=== PATIENT | female | born 1930 | race Caucasian/White ===

== ENCOUNTER → 2016-10-17 | Outpatient (CLI) | payer OTHER ==
[2016-07-05 14:15] VITALS: BP 143/71
[2016-10-17 10:29] LABS: BASOPHILS # (AUTO) 0.2 X10^3/uL (0.0-0.1); BASOPHILS % (AUTO) 1.9 % (0.2-1.0); EOSINOPHILS # (AUTO) 0.2 x10^3/uL (0.0-0.2); EOSINOPHILS % (AUTO) 1.8 % (0.9-2.9); HEMATOCRIT 36.2 % (36.0-47.0); HEMOGLOBIN 11.7 g/dL (12.0-16.0); LYMPHOCYTES # (AUTO) 3.7 X10^3/uL (1.3-2.9); LYMPHOCYTES % (AUTO) 39.3 % (21.0-51.0); MEAN CORPUSCULAR HEMOGLOBIN 29.5 pg (27.0-34.0); MEAN CORPUSCULAR HGB CONC 32.4 g/dL (33.0-35.0); MEAN CORPUSCULAR VOLUME 90.8 fL (80.0-100.0); MEAN PLATELET VOLUME 8.6 fL (7.4-11.0); MONOCYTES # (AUTO) 0.8 x10^3/uL (0.3-0.8); MONOCYTES % (AUTO) 8.6 % (0.0-13.0); NEUTROPHILS # (AUTO) 4.5 x10^3/uL (2.2-4.8); NEUTROPHILS % (AUTO) 48.4 % (42.0-75.0); PLATELET COUNT 357 X10^3/uL (150.0-450.0); RED BLOOD COUNT 3.99 X10^6/uL (3.5-5.4); RED CELL DISTRIBUTION WIDTH 15.4 % (11.6-16.5); WHITE BLOOD COUNT 9.3 X10^3/uL (3.6-10.0)
[2016-10-17 10:51] LABS: BAND NEUTROPHILS % 3 % (0-10); BASOPHILS % (MANUAL) 1 % (0-1)
[2016-10-17 10:52] LABS: PLATELET MORPHOLOGY COMMENT NORMAL (NORMAL)
== END ==
LOC: LAB 10:04
PROVIDERS: ATTEND Internal Medicine Gastroenterology
DX: D50.8 Other iron deficiency anemias (principal)
CPT/HCPCS: 36415; 85025

== ENCOUNTER → 2016-11-14 | Outpatient (CLI) | payer OTHER ==
[2016-07-05 14:15] VITALS: BP 143/71
[2016-11-14 16:18] LABS: BASOPHILS # (AUTO) 0.1 X10^3/uL (0.0-0.1); EOSINOPHILS # (AUTO) 0.2 x10^3/uL (0.0-0.2); EOSINOPHILS % (AUTO) 1.9 % (0.9-2.9); HEMOGLOBIN 12.1 g/dL (12.0-16.0); LYMPHOCYTES # (AUTO) 3.3 X10^3/uL (1.3-2.9); LYMPHOCYTES % (AUTO) 34.7 % (21.0-51.0); MEAN CORPUSCULAR HEMOGLOBIN 30.6 pg (27.0-34.0); MEAN CORPUSCULAR HGB CONC 33.6 g/dL (33.0-35.0); MEAN CORPUSCULAR VOLUME 91.1 fL (80.0-100.0); MEAN PLATELET VOLUME 8.7 fL (7.4-11.0); MONOCYTES # (AUTO) 0.9 x10^3/uL (0.3-0.8); NEUTROPHILS # (AUTO) 5.1 x10^3/uL (2.2-4.8); NEUTROPHILS % (AUTO) 53.4 % (42.0-75.0); PLATELET COUNT 395 X10^3/uL (150.0-450.0); RED BLOOD COUNT 3.95 X10^6/uL (3.5-5.4); WHITE BLOOD COUNT 9.5 X10^3/uL (3.6-10.0)
[2016-11-14 16:25] LABS: HEMOGLOBIN A1C 6.2 % (4.5-6.2)
[2016-11-14 16:40] LABS: ALANINE AMINOTRANSFERASE 18 Units/L (12-78); ALBUMIN 3.9 g/dL (3.4-5.0); ALKALINE PHOSPHATASE 64 Units/L (46-116); ASPARTATE AMINO TRANSFERASE 15 Units/L (15-37); BLOOD UREA NITROGEN 48 mg/dL (7-18); CALCIUM 10.8 mg/dL (8.5-10.1); CHLORIDE 107 mmol/L (98-107); GLUCOSE 99 mg/dL (65-99); SODIUM 142 mmol/L (136-145); TOTAL PROTEIN 7.3 g/dL (6.4-8.2); TSH (3RD GENERATION) 3.408 uIU/mL (0.358-3.74); eGFR BLACK RACES 34 (>60); eGFR NON BLACK RACES 28 (>60)
[2016-11-14 16:44] LABS: BAND NEUTROPHILS % 1 % (0-10); PLATELET MORPHOLOGY COMMENT NORMAL (NORMAL)
[2016-11-15 14:09] LABS: FREE T4 (FREE THYROXINE) 1.09 ng/dL (0.76-1.46)
== END ==
LOC: LAB 15:56
PROVIDERS: ATTEND Internal Medicine
DX: D64.89 Other specified anemias (principal); R53.1 Weakness; R53.83 Other fatigue; E53.8 Deficiency of other specified B group vitamins; E03.8 Other specified hypothyroidism; I10 Essential (primary) hypertension; E55.9 Vitamin D deficiency, unspecified; K92.1 Melena; R79.89 Other specified abnormal findings of blood chemistry
CPT/HCPCS: 36415; 80053; 82306; 82607; 83036; 84436; 84439; 84443; 85025

== ENCOUNTER → 2016-11-15 | Outpatient (CLI) | payer OTHER ==
[2016-07-05 14:15] VITALS: BP 143/71
[2016-11-15 14:50] LABS: CRYPTOSPORIDIUM PARVUM ANTIGEN NEGATIVE (NEGATIVE); GIARDIA LAMBLIA ANTIGEN NEGATIVE (NEGATIVE)
== END | disposition home or self-care (01) | DRG 812 ==
LOC: LAB 13:28
PROVIDERS: ATTEND Internal Medicine
DX: D64.89 Other specified anemias (principal); R53.1 Weakness; R53.83 Other fatigue; E53.8 Deficiency of other specified B group vitamins; E03.8 Other specified hypothyroidism; I10 Essential (primary) hypertension; E55.9 Vitamin D deficiency, unspecified; K92.1 Melena
CPT/HCPCS: 82270; 87045; 87205; 87328; 87329; 87336; 87427; 87493; 87899

== ENCOUNTER 2016-11-23 14:21 | Observation (INO) | payer OTHER ==
--- NOTE | 2016-11-23 14:39 | DR.GENAD ---
HPI - PCP Primary Care Physician: SILVER - Complaint/Symptoms Chief Complaint Doctors Comments: I agree with state. Patient is concerned in additon to weakness for two to three weeks. 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 She states that she was on metropolol 25mg daily as recent as three days ago and it was discontinued. Chief Complaint:: PT C/O WEAKNESS, N/V AND LOW HEART RATE. PT WAS SEEN AT THE HEALTH DEPT TODAY AND HER HEART RATE WAS NOTED TO BE IN THE 40'S PER PT'S FAMILY. UPON PALPIATION NOTED PT'S HEART BEAT TO BE IRREGULAR - Source History Provided: Patient - Mode of Arrival Mode of Arrival: Ambulatory - Timing Onset of Chief Complaint: 11/16/16 PMH - PMH Past Medical History: Yes Past Medical History: Hypertension Past Medical History Comment: GI BLEED Past Surgical History: Yes Surgical History: Cholecystectomy, Hysterectomy, Joint Replacement Past Surgical History Comment: HERNIA - Family History History of Family Medical Conditions: Yes Family Medical History: Diabetes Mellitus, Hypertension - Social History Does any household member use tobacco: No Alcohol Use: None Do you use any recreational Drugs:: No Lives With: Family Lives Where: Home - infectious screening In the last 2 months have you had wt loss of >10#?: NO Have you had fever, night sweats or hemotysis?: No Have you traveled outside the country in the last 6 months?: No Isolation: Standard ROS - Review of Systems Constitutional: Weakness Eyes: No Symptoms Reported ENTM: No Symptoms Reported Respiratoy: No Symptoms Reported Cardiovascular: No Symptoms Reported, Other (slow rate) Gastrointestinal/Abdominal: No Symptoms Reported Genitourinary: No Symptoms Reported Neurological: No Symptoms Reported Musculoskeletal: No Symptoms Reported Integumentary: No Symptoms Reported Hematologic/Lymphatic: No Symptoms Reported Endocrine: No Symptoms Reported Psychiatric: No Symptoms Reported All Other Systems: Reviewed and Negative PE - Vital Signs Vitals: Temperature 98.0 F Pulse Rate 73 Respiratory Rate 18 Blood Pressure [Left Arm] 136/71 Blood Pressure [Right Arm] 153/67 Blood Pressure 133/67 O2 Sat by Pulse Oximetry 96 - General Limitations: No Limitations General Appearance: Alert, In No Apparent Distress - Head Head Exam: Normal Inspection, Atraumatic - Eyes Eye exam: Normal Appearance, PERRL, EOMI - ENT ENT Exam: Normal Exam External Ear Exam: Normal External Inspection TM/Canal Exam: Bilateral Normal Mouth Exam: Normal Inspection Throat Exam: Normal Inspection - Neck Neck Exam: Normal Inspection, Full ROM - Chest Chest Inspection: Normal Inspection - Respiratory Respiratory Exam: Normal Lung Sounds Bilat Respiratory Exam: Bilateral Clear to Auscultation - Cardiovascular Cardiovascular Exam: Regular Rate, Normal Rhythm - Abdominal Exam Abdominal Exam: Normal Inspection Abdominal Tenderness: negative: RUQ, RLQ, LUQ, LLQ, Epigastrium, Suprapubic, Diffuse, Mild, Moderate, Severe, Other - Extremities Extremities Exam: Normal Inspection - Back Back Exam: Normal Inspection - Neurologic Neurological Exam: Alert, Oriented X3, CN II-XII Intact - Psychiatric Psychiatric Exam: Normal Affect - Skin Skin Exam: Warm, Dry Course - Reevaluation 1st: Improved ROR - Labs Reviewed Laboratory Results Reviewed?: Yes (Elevated bun, creatinine) Result Diagrams: 11/23/16 15:13 11/23/16 15:13 Laboratory: WBC 8.6 X10^3/uL (3.6-10.0) 11/23/16 15:13 RBC 3.77 X10^6/uL (3.5-5.4) 11/23/16 15:13 Hgb 11.6 g/dL (12.0-16.0) L 11/23/16 15:13 Hct 34.3 % (36.0-47.0) L 11/23/16 15:13 MCV 90.9 fL (80.0-100.0) 11/23/16 15:13 MCH 30.6 pg (27.0-34.0) 11/23/16 15:13 MCHC 33.7 g/dL (33.0-35.0) 11/23/16 15:13 RDW 14.9 % (11.6-16.5) 11/23/16 15:13 Plt Count 380 X10^3/uL (150.0-450.0) 11/23/16 15:13 MPV 8.7 fL (7.4-11.0) 11/23/16 15:13 Neut % 50.4 % (42.0-75.0) 11/23/16 15:13 Lymph % 35.3 % (21.0-51.0) 11/23/16 15:13 [place] % 10.7 % (0.0-13.0) 11/23/16 15:13 Eos % 2.3 % (0.9-2.9) 11/23/16 15:13 Baso % 1.3 % (0.2-1.0) H 11/23/16 15:13 Neut # 4.3 x10^3/uL (2.2-4.8) 11/23/16 15:13 Lymph # 3.0 X10^3/uL (1.3-2.9) H 11/23/16 15:13 [place] # 0.9 x10^3/uL (0.3-0.8) H 11/23/16 15:13 Eos # 0.2 x10^3/uL (0.0-0.2) 11/23/16 15:13 Baso # 0.1 X10^3/uL (0.0-0.1) 11/23/16 15:13 Absolute Nucleated RBC 0.1 /100WBC 11/23/16 15:13 Sodium 143 mmol/L (136-145) 11/23/16 15:13 Corrected Sodium TNP 11/23/16 15:13 Potassium 3.8 mmol/L (3.5-5.1) 11/23/16 15:13 Chloride 108 mmol/L (98-107) H 11/23/16 15:13 Carbon Dioxide 22.6 mmol/L (21-32) 11/23/16 15:13 BUN 38 mg/dL (7-18) H 11/23/16 15:13 Creatinine 1.68 mg/dL (0.55-1.02) H 11/23/16 15:13 Est GFR (MDRD) Af Amer 37 (>60) L 11/23/16 15:13 Est GFR (MDRD) Non-Af 31 (>60) L 11/23/16 15:13 Glucose 107 mg/dL (65-99) H 11/23/16 15:13 Calcium 10.1 mg/dL (8.5-10.1) 11/23/16 15:13 Corrected Calcium TNP 11/23/16 15:13 Magnesium 1.7 mg/dL (1.7-2.9) 11/23/16 15:15 Total Bilirubin 0.30 mg/dL (0.2-1.0) 11/23/16 15:13 AST 15 Units/L (15-37) 11/23/16 15:13 ALT 17 Units/L (12-78) 11/23/16 15:13 Alkaline Phosphatase 65 Units/L (46-116) 11/23/16 15:13 Creatine Kinase 70 Units/L (26-192) 11/23/16 15:15 CK-MB (CK-2) < 1.0 ng/mL (0-4.0) 11/23/16 15:15 CK/CKMB % Calc 1.4 % (<4) 11/23/16 15:15 Troponin I < 0.02 ng/mL (0-1.5) 11/23/16 15:15 Total Protein 7.1 g/dL (6.4-8.2) 11/23/16 15:13 Albumin 3.6 g/dL (3.4-5.0) 11/23/16 15:13 Globulin 3.5 g/dL (2.5-4.5) 11/23/16 15:13 Albumin/Globulin Ratio 1.0 Ratio (1.1-2.1) L 11/23/16 15:13 - XRAY XRAY Interpreted by: Radiologist (Chest: No acute cardiopulmonary disease) - Diagnosis Discharge Problem: Weakness, Ventricular bigeminy seen on school lunch monitor, Left hemiparesis - Discharge Plan Condition: Stable - Follow ups/Referrals Follow ups/Referrals: Brett Weber [Primary Care Provider] - 3 days - Instructions
[2016-11-23 15:30] LABS: ALANINE AMINOTRANSFERASE 17 Units/L (12-78); ALBUMIN 3.6 g/dL (3.4-5.0); ALKALINE PHOSPHATASE 65 Units/L (46-116); ASPARTATE AMINO TRANSFERASE 15 Units/L (15-37); BLOOD UREA NITROGEN 38 mg/dL (7-18); CALCIUM 10.1 mg/dL (8.5-10.1); CARBON DIOXIDE 22.6 mmol/L (21-32); CHLORIDE 108 mmol/L (98-107); CREATININE 1.68 mg/dL (0.55-1.02); GLUCOSE 107 mg/dL (65-99); SODIUM 143 mmol/L (136-145); TOTAL PROTEIN 7.1 g/dL (6.4-8.2); eGFR BLACK RACES 37 (>60); eGFR NON BLACK RACES 31 (>60)
--- NOTE | 2016-11-23 15:44 | CT ---
CT head without contrast Indication: Weakness. Technique: Axial images from the skullbase to the vertex without contrast. Coronal and sagittal refo rmats provided. Comparison: November 23, 2016. Findings: There is mild cerebral atrophy. Minimal ex vacuo ventricle sulcal enlargement noted. There is no acute intracranial hemorrhage, mass or mass effect. No large area of hypoattenuation to sugge st infarction seen. No extra-axial fluid collection identified. 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 There is no osseous abnormality. Paranasal sinuses and mastoid air cells are clear. Impression: 1. No acute intracranial abnormality. 2. Mild atrophic changes and possible old right parietal infarct, unchanged from the prior. Reported By:
[2016-11-23 15:50] LABS: BASOPHILS # (AUTO) 0.1 X10^3/uL (0.0-0.1); BASOPHILS % (AUTO) 1.3 % (0.2-1.0); EOSINOPHILS # (AUTO) 0.2 x10^3/uL (0.0-0.2); EOSINOPHILS % (AUTO) 2.3 % (0.9-2.9); HEMATOCRIT 34.3 % (36.0-47.0); HEMOGLOBIN 11.6 g/dL (12.0-16.0); LYMPHOCYTES % (AUTO) 35.3 % (21.0-51.0); MEAN CORPUSCULAR HEMOGLOBIN 30.6 pg (27.0-34.0); MEAN CORPUSCULAR HGB CONC 33.7 g/dL (33.0-35.0); MEAN CORPUSCULAR VOLUME 90.9 fL (80.0-100.0); MEAN PLATELET VOLUME 8.7 fL (7.4-11.0); MONOCYTES # (AUTO) 0.9 x10^3/uL (0.3-0.8); MONOCYTES % (AUTO) 10.7 % (0.0-13.0); NEUTROPHILS # (AUTO) 4.3 x10^3/uL (2.2-4.8); NEUTROPHILS % (AUTO) 50.4 % (42.0-75.0); PLATELET COUNT 380 X10^3/uL (150.0-450.0); RED BLOOD COUNT 3.77 X10^6/uL (3.5-5.4); RED CELL DISTRIBUTION WIDTH 14.9 % (11.6-16.5); WHITE BLOOD COUNT 8.6 X10^3/uL (3.6-10.0)
[2016-11-23 18:19] LABS: CKMB % 1.4 % (<4); CREATINE KINASE 70 Units/L (26-192); CREATINE KINASE MB < 1.0 ng/mL (0-4.0); MAGNESIUM 1.7 mg/dL (1.7-2.9); TROPONIN I < 0.02 ng/mL (0-1.5)
--- NOTE | 2016-11-23 18:25 | RAD ---
HISTORY: 86-year-old female with weeks. Study: Single frontal view of the chest. Comparison: Chest radiograph April 04, 2016. Findings: The trachea is midline. The cardiac silhouette is stably enlarged. Low lung volumes without focal consolidation, effusion or pneumothorax. The bony thorax is unremarkable. IMPRESSION: 1. No acute cardiopulmonary disease. Reported By:
[2016-11-23] MEDS ORDERED: MORPHINE SULFATE INJ 2 MG IVP PRN (19:31)
[2016-11-23] MEDS ORDERED: ZOFRAN INJ 4 MG VIAL IVP PRN (19:32)
[2016-11-23] MEDS ORDERED: NS 1000 ML 1,000 ML with POTASSIUM CHLORIDE INJ 20 MEQ VIAL 20 MEQ IV SCH ×2 (20:00)
[2016-11-23] MEDS ORDERED: KLONOPIN TAB 0.5 MG PO SCH (21:00)
[2016-11-23] MEDS ORDERED: REQUIP PO SCH (21:00)
[2016-11-23] MEDS: PROTONIX TAB 40 MG PO SCH (22:12)
[2016-11-23] MEDS: NS + KCL 20 MEQ/L 1,000 ML IV SCH (23:31)
[2016-11-24 01:24] VITALS: BMI 30.3
[2016-11-24 05:31] LABS: BASOPHILS # (AUTO) 0.1 X10^3/uL (0.0-0.1); BASOPHILS % (AUTO) 0.8 % (0.2-1.0); EOSINOPHILS # (AUTO) 0.2 x10^3/uL (0.0-0.2); EOSINOPHILS % (AUTO) 2.1 % (0.9-2.9); HEMATOCRIT 32.4 % (36.0-47.0); HEMOGLOBIN 11.1 g/dL (12.0-16.0); LYMPHOCYTES % (AUTO) 32.6 % (21.0-51.0); MEAN CORPUSCULAR HEMOGLOBIN 30.8 pg (27.0-34.0); MEAN CORPUSCULAR HGB CONC 34.3 g/dL (33.0-35.0); MEAN CORPUSCULAR VOLUME 89.7 fL (80.0-100.0); MEAN PLATELET VOLUME 8.6 fL (7.4-11.0); MONOCYTES % (AUTO) 10.5 % (0.0-13.0); PLATELET COUNT 340 X10^3/uL (150.0-450.0); RED BLOOD COUNT 3.62 X10^6/uL (3.5-5.4); RED CELL DISTRIBUTION WIDTH 14.7 % (11.6-16.5); WHITE BLOOD COUNT 9.3 X10^3/uL (3.6-10.0)
[2016-11-24 05:37] LABS: CALCIUM 9.8 mg/dL (8.5-10.1); CARBON DIOXIDE 20.6 mmol/L (21-32); COR CA(FOR HYPOALB) 10.6 mg/dL (8.5-10.1); CREATININE 1.54 mg/dL (0.55-1.02); TOTAL PROTEIN 6.2 g/dL (6.4-8.2)
[2016-11-24 06:07] LABS: BILIRUBIN,URINE NEGATIVE (NEGATIVE); BLOOD/HEMOGLOBIN,URINE NEGATIVE (NEGATIVE); GLUCOSE, URINE NEGATIVE (NEGATIVE); KETONES,URINE NEGATIVE (NEGATIVE); LEUKOCYTE ESTERASE ,URINE NEGATIVE (NEGATIVE); NITRITES,URINE NEGATIVE (NEGATIVE); PROTEIN,URINE NEGATIVE (NEGATIVE); UROBILINOGEN,URINE NORMAL (NORMAL)
[2016-11-24 06:14] LABS: APPEARANCE,URINE CLEAR (CLEAR); BACTERIA,URINE NEGATIVE /HPF (NEGATIVE); COLOR,URINE YELLOW (YELLOW); RBC,URINE 0-2 /HPF (NEGATIVE); SQUAMOUS EPITHELIAL CELL,UR NEGATIVE /HPF (NEGATIVE)
[2016-11-24] MEDS ORDERED: SYNTHROID 25 mcg TAB PO SCH (09:00)
[2016-11-24] MEDS ORDERED: HYZAAR 50/12.5 MG PO SCH (09:00)
[2016-11-24] MEDS ORDERED: ALENDRONATE SODIUM 10 MG PO SCH (09:00)
[2016-11-24 09:02] LABS: CREATINE KINASE 27 Units/L (26-192); CREATINE KINASE MB < 1.0 ng/mL (0-4.0); TROPONIN I 0.02 ng/mL (0-1.5)
[2016-11-24 09:08] LABS: CKMB % 3.7 % (<4)
[2016-11-24] MEDS: PROTONIX TAB 40 MG PO SCH (09:15)
[2016-11-24] MEDS: NS + KCL 20 MEQ/L 1,000 ML IV SCH ×2 (09:19→12:31)
[2016-11-24 12:31] VITALS: BP 168/78
== END 2016-11-24 16:50 | disposition home or self-care (01) ==
LOC: ER 14:44 → MED/SURG 19:21
PROVIDERS: ADMIT Internal Medicine; ATTEND Internal Medicine
DX: R53.1 Weakness (principal); R00.8 Other abnormalities of heart beat; E86.0 Dehydration; R11.2 Nausea with vomiting, unspecified; I10 Essential (primary) hypertension; G81.94 Hemiplegia, unspecified affecting left nondominant side; R94.31 Abnormal electrocardiogram [ECG] [EKG]; D64.89 Other specified anemias; R94.4 Abnormal results of kidney function studies
CPT/HCPCS: 36415; 70450; 71010; 80053; 81001; 82550; 82553; 83735; 84484; 85025; 93005; 94760; 99284; A4216; A4222; G0378; J3480

== ENCOUNTER → 2017-01-07 | Outpatient (CLI) | payer OTHER ==
[2017-01-07 11:46] LABS: FREE T4 (FREE THYROXINE) 1.11 ng/dL (0.76-1.46); TSH (3RD GENERATION) 2.422 uIU/mL (0.358-3.74)
== END ==
LOC: LAB 10:58
PROVIDERS: ATTEND Internal Medicine Cardiovascular Disease
DX: R00.2 Palpitations (principal)
CPT/HCPCS: 36415; 84439; 84443

== ENCOUNTER 2017-02-19 14:00 | Observation (INO) | payer OTHER ==
--- NOTE | 2017-02-19 15:53 | DR.GENAD ---
HPI - PCP Primary Care Physician: SILVER - HPI Comment HPI Comment: PATIENT IS ALSO HAVING LEFT HIP AND LT KNEE PAIN. NO FEVER. NO DYSURIA. LEFT LOWER CHEST PAIN WITH MILD NON PRODUCTIVE COUGH. - Complaint/Symptoms Chief Complaint Doctors Comments: INCREASING WEAKNESS AND NEAR SYNCOPAL EPISODES FOR FEW DAYS. Chief Complaint:: "VERY WEAK FOR WEEKS NOW" - Nurses notes reviewed Nurses Notes Review: Yes - Source History Provided: Patient - Mode of Arrival Mode of Arrival: Ambulatory - Timing Onset of Chief Complaint: 02/08/17 Came on: Gradually - Duration Duration: Constant Duration: Days - Severity Severity: Moderate PMH - PMH Past Medical History: Yes Past Medical History: Hypertension Past Surgical History: Yes Surgical History: Cholecystectomy, Hysterectomy, Joint Replacement - Family History History of Family Medical Conditions: Yes Family Medical History: Diabetes Mellitus, Hypertension - Social History Does patient currently use any type of tobacco product: No Have you used tobacco products in the last 12 months: No Type of Tobacco Use: None Does any household member use tobacco: No Alcohol Use: None Do you use any recreational Drugs:: No Lives With: Family Lives Where: Home - infectious screening In the last 2 months have you had wt loss of >10#?: NO Have you had fever, night sweats or hemotysis?: No Have you traveled outside the country in the last 6 months?: No Isolation: Standard ROS - Review of Systems Constitutional: Weakness, Fatigue, Loss of Appetite. negative: Chills, Diaphoresis, Fever Eyes: negative: No Symptoms Reported ENTM: negative: Ear Pain, Nose Discharge, Nose Congestion, Throat Pain Respiratoy: Non-Productive Cough, Short of Breath. negative: Wheezing, Hemoptysis Cardiovascular: Chest Pain (CHEST WALL PAIN ), Syncope (NEAR SYNCOPE) Gastrointestinal/Abdominal: negative: Abdominal Pain, Diarrhea, Nausea, Vomiting Genitourinary: negative: Dysuria, Frequency, Hematuria Neurological: Headache, Weakness, Dizziness Musculoskeletal: Muscle Pain Integumentary: No Symptoms Reported Hematologic/Lymphatic: No Symptoms Reported Endocrine: No Symptoms Reported All Other Systems: Reviewed and Negative PE - Vital Signs Vitals: Temperature 98 F Pulse Rate 101 Respiratory Rate 18 Blood Pressure [Left Arm] 168/78 Blood Pressure [Right Arm] 153/67 Blood Pressure 196/91 O2 Sat by Pulse Oximetry 97 - General Limitations: No Limitations General Appearance: Alert - Head Head Exam: Normal Inspection - Eyes Eye exam: Normal Appearance - ENT ENT Exam: Normal External Ear Exam External Ear Exam: Normal External Inspection TM/Canal Exam: Bilateral Normal Nose Exam: Normal Nose Exam Mouth Exam: Normal Inspection Throat Exam: Normal Inspection - Neck Neck Exam: Trachea Midline - Chest Chest Inspection: Symmetric Chest Wall Rise - Respiratory Respiratory Exam: Normal Lung Sounds Bilat Respiratory Exam: Bilateral Clear to Auscultation - Cardiovascular Cardiovascular Exam: Regular Rate, Normal Rhythm, Normal Heart Sounds - Abdominal Exam Abdominal Exam: Normal Bowel Sounds, Soft. negative: Tenderness - Extremities Extremities Exam: Tenderness (left knee tender, left hip tender.) - Back Back Exam: Paraspinal Tenderness - Neurologic Neurological Exam: Alert, Oriented X3 - Psychiatric Psychiatric Exam: Anxious - Skin Skin Exam: Normal Color MDM - Additional Information Additional Information Obtained From: Family - Differential Diagnosis Differential Diagnosis: GENERALIZE WEAKNESS, NEAR SYNCOPE, ID, ARTHRITIS Course - Treatment Treatment: SEE ORDERS. - Education/Counseling Education/Counseling: Patient, Family, Education Educated On: Treatment, Diagnosis, Needs for Follow Up ROR - Labs Reviewed Laboratory Results Reviewed?: Yes Result Diagrams: 02/20/17 05:10 02/20/17 05:10 Laboratory: WBC 10.5 X10^3/uL (3.6-10.0) H 02/20/17 05:10 RBC 3.36 X10^6/uL (3.5-5.4) L 02/20/17 05:10 Hgb 10.6 g/dL (12.0-16.0) L 02/20/17 05:10 Hct 30.8 % (36.0-47.0) L 02/20/17 05:10 MCV 91.7 fL (80.0-100.0) 02/20/17 05:10 MCH 31.5 pg (27.0-34.0) 02/20/17 05:10 MCHC 34.3 g/dL (33.0-35.0) 02/20/17 05:10 RDW 14.3 % (11.6-16.5) 02/20/17 05:10 Plt Count 529 X10^3/uL (150.0-450.0) H 02/20/17 05:10 Plt Count Comment Increased (ADEQUATE) A 02/20/17 05:10 MPV 8.5 fL (7.4-11.0) 02/20/17 05:10 Neut % 57.7 % (42.0-75.0) 02/20/17 05:10 Lymph % 29.9 % (21.0-51.0) 02/20/17 05:10 [place] % 9.6 % (0.0-13.0) 02/20/17 05:10 Eos % 1.8 % (0.9-2.9) 02/20/17 05:10 Baso % 1.0 % (0.2-1.0) 02/20/17 05:10 Neut # 6.1 x10^3/uL (2.2-4.8) H 02/20/17 05:10 Lymph # 3.2 X10^3/uL (1.3-2.9) H 02/20/17 05:10 [place] # 1.0 x10^3/uL (0.3-0.8) H 02/20/17 05:10 Eos # 0.2 x10^3/uL (0.0-0.2) 02/20/17 05:10 Baso # 0.1 X10^3/uL (0.0-0.1) 02/20/17 05:10 Absolute Nucleated RBC 0.1 /100WBC 02/20/17 05:10 Total Counted 100 02/20/17 05:10 Neutrophils % (Manual) 56 % (39-76) 02/20/17 05:10 Band Neutrophils % 2 % (0-10) 02/20/17 05:10 Lymphocytes % (Manual) 31 % (13-43) 02/20/17 05:10 Monocytes % (Manual) 8 % (4-9) 02/20/17 05:10 Eosinophils % (Manual) 3 % (0-6) 02/20/17 05:10 Metamyelocytes % 2 02/19/17 16:05 Plt Morphology Comment Normal (NORMAL) 02/20/17 05:10 RBC Morphology Normal (NORMAL) 02/20/17 05:10 Hypochromasia Slight A 02/19/17 16:05 Sodium 143 mmol/L (136-145) 02/20/17 05:10 Corrected Sodium 144 mmol/L (136-145) 02/20/17 05:10 Potassium 3.9 mmol/L (3.5-5.1) 02/20/17 05:10 Chloride 110 mmol/L (98-107) H 02/20/17 05:10 Carbon Dioxide 25.9 mmol/L (21-32) 02/20/17 05:10 BUN 35 mg/dL (7-18) H 02/20/17 05:10 Creatinine 1.64 mg/dL (0.55-1.02) H 02/20/17 05:10 Est GFR (MDRD) Af Amer 38 (>60) L 02/20/17 05:10 Est GFR (MDRD) Non-Af 32 (>60) L 02/20/17 05:10 Glucose 139 mg/dL (65-99) H 02/20/17 05:10 Calcium 10.5 mg/dL (8.5-10.1) H 02/20/17 05:10 Corrected Calcium 11.5 mg/dL (8.5-10.1) H 02/20/17 05:10 Total Bilirubin 0.10 mg/dL (0.2-1.0) L 02/20/17 05:10 AST 12 Units/L (15-37) L 02/20/17 05:10 ALT 14 Units/L (12-78) 02/20/17 05:10 Alkaline Phosphatase 47 Units/L (46-116) 02/20/17 05:10 Creatine Kinase 27 Units/L (26-192) 02/20/17 05:10 CK-MB (CK-2) < 1.0 ng/mL (0-4.0) 02/20/17 05:10 CK/CKMB % Calc 3.7 % (<4) 02/20/17 05:10 Troponin I 0.03 ng/mL (0-1.5) 02/20/17 05:10 Total Protein 5.9 g/dL (6.4-8.2) L 02/20/17 05:10 Albumin 2.8 g/dL (3.4-5.0) L 02/20/17 05:10 Globulin 3.1 g/dL (2.5-4.5) 02/20/17 05:10 Albumin/Globulin Ratio 0.9 Ratio (1.1-2.1) L 02/20/17 05:10 - XRAY XRAY Interpreted by: Radiologist XRAY Findings: REPORT DISCUSS WITH PATIENT AND FAMILY. - EKG Rhythm: NSR (EKG NOTED) - Diagnosis Discharge Problem: Generalized weakness, Syncope, near, Arthritis - Discharge Plan Disposition: 01 HOME, SELF-CARE Condition: Stable - Follow ups/Referrals - Instructions
[2017-02-19 16:16] LABS: BASOPHILS # (AUTO) 0.2 X10^3/uL (0.0-0.1); BASOPHILS % (AUTO) 1.5 % (0.2-1.0); EOSINOPHILS # (AUTO) 0.2 x10^3/uL (0.0-0.2); EOSINOPHILS % (AUTO) 1.4 % (0.9-2.9); HEMATOCRIT 34.5 % (36.0-47.0); HEMOGLOBIN 11.5 g/dL (12.0-16.0); LYMPHOCYTES # (AUTO) 3.7 X10^3/uL (1.3-2.9); LYMPHOCYTES % (AUTO) 29.2 % (21.0-51.0); MEAN CORPUSCULAR HEMOGLOBIN 30.3 pg (27.0-34.0); MEAN CORPUSCULAR HGB CONC 33.4 g/dL (33.0-35.0); MEAN CORPUSCULAR VOLUME 90.7 fL (80.0-100.0); MEAN PLATELET VOLUME 8.3 fL (7.4-11.0); MONOCYTES # (AUTO) 1.1 x10^3/uL (0.3-0.8); MONOCYTES % (AUTO) 8.7 % (0.0-13.0); NEUTROPHILS # (AUTO) 7.5 x10^3/uL (2.2-4.8); NEUTROPHILS % (AUTO) 59.2 % (42.0-75.0); PLATELET COUNT 676 X10^3/uL (150.0-450.0); RED CELL DISTRIBUTION WIDTH 14.5 % (11.6-16.5); WHITE BLOOD COUNT 12.6 X10^3/uL (3.6-10.0)
[2017-02-19 16:41] LABS: BLOOD UREA NITROGEN 31 mg/dL (7-18); CALCIUM 11.2 mg/dL (8.5-10.1); CARBON DIOXIDE 25.4 mmol/L (21-32); CHLORIDE 104 mmol/L (98-107); CREATININE 1.57 mg/dL (0.55-1.02); SODIUM 138 mmol/L (136-145); TROPONIN I 0.03 ng/mL (0-1.5); eGFR BLACK RACES 40 (>60); eGFR NON BLACK RACES 33 (>60)
[2017-02-19 16:43] LABS: ALANINE AMINOTRANSFERASE 19 Units/L (12-78); ALBUMIN 3.6 g/dL (3.4-5.0); ALKALINE PHOSPHATASE 56 Units/L (46-116); ASPARTATE AMINO TRANSFERASE 15 Units/L (15-37); CREATINE KINASE 20 Units/L (26-192); CREATINE KINASE MB < 1.0 ng/mL (0-4.0); TOTAL PROTEIN 7.2 g/dL (6.4-8.2)
[2017-02-19 16:44] LABS: METAMYELOCYTES % 2
[2017-02-19 16:45] LABS: BAND NEUTROPHILS % 2 % (0-10); PLATELET MORPHOLOGY COMMENT NORMAL (NORMAL)
[2017-02-19 16:46] LABS: HYPOCHROMASIA SLIGHT
--- NOTE | 2017-02-19 16:50 | RAD ---
HISTORY: Chest pain, weakness Study: Single view chest Comparison: 11/23/2016 Findings: Single view is submitted. The lungs are clear without consolidation, effusion or pneumothorax. There is stable cardiomegaly. The soft tissues are unremarkable. IMPRESSION: 1. Cardiomegaly without acute abnormality. Reported By:
[2017-02-19] MEDS ORDERED: MORPHINE SULFATE INJ 2 MG INJ IVP PRN (19:37)
[2017-02-19] MEDS: NS 1000 ML 1,000 ML IV SCH (20:00)
[2017-02-19] MEDS: ZOFRAN INJ 4 MG VIAL IVP SCH ×2 (20:12→21:53)
--- NOTE | 2017-02-19 20:20 | RAD ---
HISTORY: Pain Study: Two views left hip Comparison: None Findings: There are degenerative changes of the bilateral hips and visualized lumbosacral spine. Alignment is n ormal. No acute fracture or dislocation. The soft tissues are unremarkable. IMPRESSION: 1. Degenerative changes without acute osseous abnormality. Reported By:
--- NOTE | 2017-02-19 20:20 | RAD ---
Left knee three views Indication: Left knee pain. Findings: The patella is lower in position than would be expected. Quadriceps tendon tear is possible . Fractured enthesophyte possible at the superior pole. Tibiotalar joint is intact. Impression: Question quadriceps tendon injury. Correlate clinically and followup with orthopedics and /MR imaging. Reported By:
[2017-02-19 21:55] VITALS: BMI 27.6
[2017-02-19 23:58] LABS: CKMB % 4.8 % (<4); CREATINE KINASE 21 Units/L (26-192); CREATINE KINASE MB < 1.0 ng/mL (0-4.0); TROPONIN I 0.03 ng/mL (0-1.5)
[2017-02-20 05:48] LABS: ALBUMIN 2.8 g/dL (3.4-5.0); CALCIUM 10.5 mg/dL (8.5-10.1); CARBON DIOXIDE 25.9 mmol/L (21-32); COR CA(FOR HYPOALB) 11.5 mg/dL (8.5-10.1); CREATININE 1.64 mg/dL (0.55-1.02); TOTAL PROTEIN 5.9 g/dL (6.4-8.2)
[2017-02-20 05:58] LABS: BASOPHILS # (AUTO) 0.1 X10^3/uL (0.0-0.1); EOSINOPHILS # (AUTO) 0.2 x10^3/uL (0.0-0.2); EOSINOPHILS % (AUTO) 1.8 % (0.9-2.9); HEMATOCRIT 30.8 % (36.0-47.0); HEMOGLOBIN 10.6 g/dL (12.0-16.0); LYMPHOCYTES # (AUTO) 3.2 X10^3/uL (1.3-2.9); LYMPHOCYTES % (AUTO) 29.9 % (21.0-51.0); MEAN CORPUSCULAR HEMOGLOBIN 31.5 pg (27.0-34.0); MEAN CORPUSCULAR HGB CONC 34.3 g/dL (33.0-35.0); MEAN CORPUSCULAR VOLUME 91.7 fL (80.0-100.0); MEAN PLATELET VOLUME 8.5 fL (7.4-11.0); MONOCYTES % (AUTO) 9.6 % (0.0-13.0); NEUTROPHILS # (AUTO) 6.1 x10^3/uL (2.2-4.8); NEUTROPHILS % (AUTO) 57.7 % (42.0-75.0); PLATELET COUNT 529 X10^3/uL (150.0-450.0); RED BLOOD COUNT 3.36 X10^6/uL (3.5-5.4); RED CELL DISTRIBUTION WIDTH 14.3 % (11.6-16.5); WHITE BLOOD COUNT 10.5 X10^3/uL (3.6-10.0)
[2017-02-20] MEDS: ZOFRAN INJ 4 MG VIAL IVP SCH ×3 (06:02→21:19)
[2017-02-20 06:09] LABS: CKMB % 3.7 % (<4); CREATINE KINASE 27 Units/L (26-192); CREATINE KINASE MB < 1.0 ng/mL (0-4.0); TROPONIN I 0.03 ng/mL (0-1.5)
[2017-02-20 06:58] LABS: BAND NEUTROPHILS % 2 % (0-10)
[2017-02-20 06:59] LABS: PLATELET MORPHOLOGY COMMENT NORMAL (NORMAL)
[2017-02-20 07:35] LABS: APPEARANCE,URINE SLIGHTLY HAZY (CLEAR); BACTERIA,URINE TRACE /HPF (NEGATIVE); BILIRUBIN,URINE NEGATIVE (NEGATIVE); BLOOD/HEMOGLOBIN,URINE NEGATIVE (NEGATIVE); COLOR,URINE YELLOW (YELLOW); GLUCOSE, URINE NEGATIVE (NEGATIVE); KETONES,URINE NEGATIVE (NEGATIVE); LEUKOCYTE ESTERASE ,URINE 3+ (NEGATIVE); NITRITES,URINE NEGATIVE (NEGATIVE); PROTEIN,URINE NEGATIVE (NEGATIVE); RBC,URINE 0 /HPF (NEGATIVE); SQUAMOUS EPITHELIAL CELL,UR FEW /HPF (NEGATIVE); UROBILINOGEN,URINE NORMAL (NORMAL)
[2017-02-20] MEDS: NS 1000 ML 1,000 ML IV SCH ×2 (09:32→22:21)
--- NOTE | 2017-02-20 11:40 | DR.H&P ---
H&P - History & Physical for Day of: H&P Date: 02/19/17 - Chief Complaint Chief Complaint: WEAKNESS, NAUSEA, NEAR SYNCOPE - Allergies Allergies/Adverse Reactions: Allergies Allergy/AdvReac Type Severity Reaction Status Date / Time ciprofloxacin Allergy Verified 02/19/17 19:46 metronidazole Allergy Verified 02/19/17 19:46 - History of Present Illness History of Present Illness: IS A 87 YEAR OLD PATIENT OF OURS WHO PRESENTED TO THE EMERGENCY ROOM WITH COMPLAINTS OF INCREASING WEAKNESS OVER THE PAST 2-3 DAY, NON PRODUCTIVE COUGH, CHEST PAIN, SHORTNESS OF BREATH, AND A NEAR SYNCOPAL EPISODE. PATIENT ALSO REPORTS LEFT KNEE AND HIP PAIN WITH NO KNOWN INJURY. ON ARRIVAL TO ER, VITALS WERE 98.0-101-18-97%-196/91. ABNORMAL LABS INCLUDE: WBC 12.6, Hgb 11.5, Hct 34.5, Plt Count 676, BUN 31, Creatinine 1.57, GFR af 40, GFR non 33, Glucose 103, Calcium 11.2, Creatine Kinase 20, 21, A/G Ratio 1.0. CHEST XRAY REPORTS CARDIOMEGALY WITHOUT ACUTE ABNORMALITY. LEFT HIP XRAY REPORTS DEGENERATIVE CHANGES WITHOUT ACUTE OSSEOUS ABNORMALITY. LEFT KNEE XRAY REPORTS QUESTIONABLE QUADRICEP TENDON INJURY AND SUGGESTS FOLLOWUP WITH ORTHOPEDICS AND MR IMAGING. EKG REPORTS SINUS RHYTHM, VENTRICULAR BIGEMINY WITH RATE OF 83. SHE WAS GIVEN MORPHINE 2MG IV IN ER. WE ADMITTED PATIENT FOR FURTHER TREATMENT AND EVALUATION. SHE WAS STARTED ON MORPHINE 2MG IV Q6H PRN PAIN, ZOFRAN 4MG IV Q8H PRN NAUSEA, AND NORMAL SALINE AT 75ML/HR. WE PLAN TO RECHECK AM LABS AND TO CONTINUE TO MONITOR PATIENT - Past Medical History Past Medical History: Depression, Hypertension, Hypothyroidism Additional Medical History: Cataracts, Heart murmur, Hiatal Hernia, GI Bleed, Previous Blood Transfusion - Past Surgical History Surgical History: Cholecystectomy, Hysterectomy, Joint Replacement Additional Surgical History: Hernia Repair, Knee Surgery - Family History Family Medical History: Diabetes Mellitus, Hypertension - Social History Does patient currently use any type of tobacco product: No Have you used tobacco products in the last 12 months: No Type of Tobacco Use: None Does any household member use tobacco: No Alcohol Use: None Drug Use: None - Medications Home Medications: Aspirin [Aspirin 81 mg Chewtab] 81 mg PO DAILY 02/19/17 [History Confirmed 02/19] Cholecalciferol (Vitamin D3) [D3 Maximum Strength] 5,000 unit PO DAILY 02/19/17 [History Confirmed 02/19/17] - Review of Systems Constitutional: See HPI, Weakness Eyes: No Symptoms Reported ENT: No Symptoms Reported Respiratory: Cough, Shortness of Breath Cardiovascular: Chest Pain, Light Headedness, Other (NEAR SYNCOPE ) Gastrointestinal: See HPI, Nausea Genitourinary: No Symptoms Reported Musculoskeletal: See HPI, Other (LEFT HIP AND LEFT KNEE PAIN ) Skin: No Symptoms Reported Neurological: Weakness - Physical Exam Vital Signs: Temperature 98.7 F Pulse Rate 101 Respiratory Rate 16 Blood Pressure [Left Arm] 107/53 Blood Pressure [Right Arm] 153/67 Blood Pressure 196/91 O2 Sat by Pulse Oximetry 99 Oriented: Normal Eyes: Normal Ear: Normal Nose: Normal Throat: Normal Respiratory: Clear Throughout Cardiovascular: Normal : Normal Auscultation: Bowel Sounds: Normal Palpation: Normal Tenderness: Normal Skin: Normal Musculoskeletal: Left, Hip, Knee, Tender Psychiatric: Normal Mood Description: Calm Affect: Normal Speech Pattern: Clear - Assessment/Plan (1) Syncope, near Status: Acute Plan: TELEMETRY, CONTINUE TO HYDRATE, CONTINUE TO MONITOR (2) Weakness Status: Acute Plan: CONTINUE IV FLUIDS, CONTINUE TO MONITOR PATIENT AND LABS (3) Chest pain Qualifiers: Chest pain type: unspecified Qualified Code(s): R07.9 - Chest pain, unspecified Status: Acute Plan: SERIAL CARDIAC ENZYMES AND EKG, CONTINUE TO MONITOR
[2017-02-20] MEDS: HEMOCYTE-PLUS PO SCH (12:19)
[2017-02-20] MEDS ORDERED: REQUIP PO PRN (15:22)
[2017-02-20] MEDS ORDERED: NORCO 10/325 TAB PO PRN (15:22)
[2017-02-20] MEDS ORDERED: PATIENT'S HOME MEDICATION (Cetirizine Hcl [Cetirizine Hcl] 10 MG) PO SCH (15:30)
[2017-02-20] MEDS: SINGULAIR TAB 10 MG PO SCH (16:56)
[2017-02-20] MEDS: SYNTHROID 25 mcg TAB PO SCH (16:57)
[2017-02-20] MEDS: PROTONIX TAB 40 MG PO SCH ×2 (16:57→21:19)
[2017-02-20] MEDS: HYZAAR 50/12.5 MG PO SCH (16:57)
[2017-02-20] MEDS ORDERED: COLACE CAP 100 MG PO PRN (19:34)
[2017-02-20] MEDS ORDERED: MILK OF MAGNESIA PO PRN (19:34)
[2017-02-20] MEDS ORDERED: KLONOPIN TAB 0.5 MG PO SCH (21:00)
[2017-02-21] MEDS: ZOFRAN INJ 4 MG VIAL IVP SCH (06:08)
[2017-02-21 06:15] LABS: BASOPHILS # (AUTO) 0.1 X10^3/uL (0.0-0.1); BASOPHILS % (AUTO) 0.9 % (0.2-1.0); EOSINOPHILS # (AUTO) 0.2 x10^3/uL (0.0-0.2); EOSINOPHILS % (AUTO) 2.6 % (0.9-2.9); HEMATOCRIT 29.3 % (36.0-47.0); LYMPHOCYTES # (AUTO) 3.3 X10^3/uL (1.3-2.9); MEAN CORPUSCULAR HEMOGLOBIN 31.6 pg (27.0-34.0); MEAN CORPUSCULAR HGB CONC 34.3 g/dL (33.0-35.0); MEAN PLATELET VOLUME 8.2 fL (7.4-11.0); MONOCYTES # (AUTO) 0.8 x10^3/uL (0.3-0.8); NEUTROPHILS # (AUTO) 4.7 x10^3/uL (2.2-4.8); NEUTROPHILS % (AUTO) 51.5 % (42.0-75.0); PLATELET COUNT 498 X10^3/uL (150.0-450.0); RED BLOOD COUNT 3.18 X10^6/uL (3.5-5.4); RED CELL DISTRIBUTION WIDTH 14.8 % (11.6-16.5); WHITE BLOOD COUNT 9.1 X10^3/uL (3.6-10.0)
[2017-02-21 06:54] LABS: BAND NEUTROPHILS % 3 % (0-10); PLATELET MORPHOLOGY COMMENT NORMAL (NORMAL)
[2017-02-21 07:09] LABS: ALANINE AMINOTRANSFERASE 17 Units/L (12-78); ALBUMIN 2.8 g/dL (3.4-5.0); ALKALINE PHOSPHATASE 44 Units/L (46-116); ASPARTATE AMINO TRANSFERASE 14 Units/L (15-37); BLOOD UREA NITROGEN 28 mg/dL (7-18); CALCIUM 9.5 mg/dL (8.5-10.1); CARBON DIOXIDE 23.5 mmol/L (21-32); CHLORIDE 111 mmol/L (98-107); COR CA(FOR HYPOALB) 10.5 mg/dL (8.5-10.1); CREATININE 1.41 mg/dL (0.55-1.02); SODIUM 144 mmol/L (136-145); TOTAL PROTEIN 5.8 g/dL (6.4-8.2); eGFR BLACK RACES 45 (>60); eGFR NON BLACK RACES 38 (>60)
[2017-02-21 08:31] VITALS: BP 151/70
[2017-02-21] MEDS ORDERED: VITAMIN D3 PO SCH (09:00)
[2017-02-21] MEDS ORDERED: PATIENT'S HOME MEDICATION (Cholecalciferol (Vitamin D3) [Vitamin D3] 5,000 UNIT) PO SCH (09:00)
[2017-02-21] MEDS ORDERED: COLACE CAP 100 MG PO PRN (09:00)
[2017-02-21] MEDS ORDERED: ASPIRIN 81 MG CHEWTAB PO SCH (09:00)
[2017-02-21] MEDS ORDERED: ZyrTEC TAB 10 MG PO SCH (09:00)
[2017-02-21] MEDS: SYNTHROID 25 mcg TAB PO SCH (10:13)
[2017-02-21] MEDS: SINGULAIR TAB 10 MG PO SCH (10:13)
[2017-02-21] MEDS: HYZAAR 50/12.5 MG PO SCH (10:13)
[2017-02-21] MEDS: PROTONIX TAB 40 MG PO SCH (10:14)
[2017-02-21] MEDS: HEMOCYTE-PLUS PO SCH (10:14)
--- NOTE | 2017-02-21 20:30 | PCM.PROG ---
Progress Note - Progress Note for Day of Date: 02/20/17 - Subjective Subjective: IS ALERT AND ORIENTED, SITTING UP IN BED ON MORNING ROUNDS. SHE IS NOTED WITH COMPLAINTS OF GENERALIZED WEAKNESS AND LEFT LEG PAIN ON MORNING ROUNDS. ON EXAMINATION, BILATERAL LUNGS ARE CLEAR TO AUSCULTATION. VITALS THIS AM ARE 97.7-80-18-93%-134/65. ABNORMAL LAB VALUES THIS MORNING INCLUDE WBC 10.5, RBC 3.36, HCT 30.8, BUN 35, CREATININE 1.64, GLUCOSE 139, CALCIUM 10.5, AST 12, TOTAL PROTIEN 5.9, ALBUMIN 2.8. WE WILL START HEMOCYTE 1 CAPSULE PO DAILY. WE PLAN TO CONTINUE TO HYDRATE PATIENT WITH IV FLUIDS, RECHECK AM LABS, AND CONTINUE TO MONITOR. - Past Medical Family Social History Past Med/Fam/Surg Hx: No changes since H&P Allergies: Allergies ciprofloxacin Allergy (Verified 02/19/17 19:46) metronidazole Allergy (Verified 02/19/17 19:46) - Review of Systems ROS: No change since H&P - Vital Signs and I&O's Vital Signs: Temperature 98.8 F Pulse Rate [Left Radial] 72 Pulse Rate 101 Respiratory Rate 18 Blood Pressure [Left Arm] 134/65 Blood Pressure [Right Arm] 151/70 Blood Pressure 196/91 O2 Sat by Pulse Oximetry 94 Intake and Output: Intake & Output 02/19/17 02/20/17 02/21/17 02/22/17 11:59 11:59 11:59 11:59 Intake Total 901 1380 Output Total 1100 Balance 901 280 - Physical Exam Oriented: Normal Eyes: Normal Ear: Normal Nose: Normal Throat: Normal Respiratory: Normal Cardiovascular: Normal : Normal Auscultation: Bowel Sounds: Normal Palpation: Normal Tenderness: Normal Skin: Normal Musculoskeletal: Left, Hip, Knee, Tender Psychiatric: Normal Mood Description: Calm Affect: Normal Speech Pattern: Clear, Appropriate, Delayed - Laboratory and Diagnostics Result Diagrams: 02/21/17 05:00 02/21/17 05:00 Labs: Laboratory WBC 9.1 X10^3/uL (3.6-10.0) 02/21/17 05:00 RBC 3.18 X10^6/uL (3.5-5.4) L 02/21/17 05:00 Hgb 10.0 g/dL (12.0-16.0) L 02/21/17 05:00 Hct 29.3 % (36.0-47.0) L 02/21/17 05:00 MCV 92.0 fL (80.0-100.0) 02/21/17 05:00 MCH 31.6 pg (27.0-34.0) 02/21/17 05:00 MCHC 34.3 g/dL (33.0-35.0) 02/21/17 05:00 RDW 14.8 % (11.6-16.5) 02/21/17 05:00 Plt Count 498 X10^3/uL (150.0-450.0) H 02/21/17 05:00 Plt Count Comment Increased (ADEQUATE) A 02/21/17 05:00 MPV 8.2 fL (7.4-11.0) 02/21/17 05:00 Neut % 51.5 % (42.0-75.0) 02/21/17 05:00 Lymph % 36.0 % (21.0-51.0) 02/21/17 05:00 [place] % 9.0 % (0.0-13.0) 02/21/17 05:00 Eos % 2.6 % (0.9-2.9) 02/21/17 05:00 Baso % 0.9 % (0.2-1.0) 02/21/17 05:00 Neut # 4.7 x10^3/uL (2.2-4.8) 02/21/17 05:00 Lymph # 3.3 X10^3/uL (1.3-2.9) H 02/21/17 05:00 [place] # 0.8 x10^3/uL (0.3-0.8) 02/21/17 05:00 Eos # 0.2 x10^3/uL (0.0-0.2) 02/21/17 05:00 Baso # 0.1 X10^3/uL (0.0-0.1) 02/21/17 05:00 Absolute Nucleated RBC 0.0 /100WBC 02/21/17 05:00 Total Counted 100 02/21/17 05:00 Neutrophils % (Manual) 51 % (39-76) 02/21/17 05:00 Band Neutrophils % 3 % (0-10) 02/21/17 05:00 Lymphocytes % (Manual) 40 % (13-43) 02/21/17 05:00 Monocytes % (Manual) 4 % (4-9) 02/21/17 05:00 Eosinophils % (Manual) 2 % (0-6) 02/21/17 05:00 Metamyelocytes % 2 02/19/17 16:05 Plt Morphology Comment Normal (NORMAL) 02/21/17 05:00 RBC Morphology Normal (NORMAL) 02/21/17 05:00 Hypochromasia Slight A 02/19/17 16:05 Sodium 144 mmol/L (136-145) 02/21/17 05:00 Corrected Sodium TNP 02/21/17 05:00 Potassium 3.9 mmol/L (3.5-5.1) 02/21/17 05:00 Chloride 111 mmol/L (98-107) H 02/21/17 05:00 Carbon Dioxide 23.5 mmol/L (21-32) 02/21/17 05:00 BUN 28 mg/dL (7-18) H 02/21/17 05:00 Creatinine 1.41 mg/dL (0.55-1.02) H 02/21/17 05:00 Est GFR (MDRD) Af Amer 45 (>60) L 02/21/17 05:00 Est GFR (MDRD) Non-Af 38 (>60) L 02/21/17 05:00 Glucose 107 mg/dL (65-99) H 02/21/17 05:00 Calcium 9.5 mg/dL (8.5-10.1) 02/21/17 05:00 Corrected Calcium 10.5 mg/dL (8.5-10.1) H 02/21/17 05:00 Total Bilirubin 0.20 mg/dL (0.2-1.0) 02/21/17 05:00 AST 14 Units/L (15-37) L 02/21/17 05:00 ALT 17 Units/L (12-78) 02/21/17 05:00 Alkaline Phosphatase 44 Units/L (46-116) L 02/21/17 05:00 Creatine Kinase 27 Units/L (26-192) 02/20/17 05:10 CK-MB (CK-2) < 1.0 ng/mL (0-4.0) 02/20/17 05:10 CK/CKMB % Calc 3.7 % (<4) 02/20/17 05:10 Troponin I 0.03 ng/mL (0-1.5) 02/20/17 05:10 Total Protein 5.8 g/dL (6.4-8.2) L 02/21/17 05:00 Albumin 2.8 g/dL (3.4-5.0) L 02/21/17 05:00 Globulin 3.0 g/dL (2.5-4.5) 02/21/17 05:00 Albumin/Globulin Ratio 0.9 Ratio (1.1-2.1) L 02/21/17 05:00 Specimen Type Clean catch urine 02/20/17 07:17 Urine Color Yellow (YELLOW) 02/20/17 07:17 Urine Appearance Slightly hazy (CLEAR) 02/20/17 07:17 Urine pH 5.0 (5.0 - 8.0) 02/20/17 07:17 Ur Specific [place] 1.020 (1.000-1.030) 02/20/17 07:17 Urine Protein Negative (NEGATIVE) 02/20/17 07:17 Urine Glucose (UA) Negative (NEGATIVE) 02/20/17 07:17 Urine Ketones Negative (NEGATIVE) 02/20/17 07:17 Urine Occult Blood Negative (NEGATIVE) 02/20/17 07:17 Urine Nitrite Negative (NEGATIVE) 02/20/17 07:17 Urine Bilirubin Negative (NEGATIVE) 02/20/17 07:17 Urine Urobilinogen Normal (NORMAL) 02/20/17 07:17 Ur Leukocyte Esterase 3+ (NEGATIVE) 02/20/17 07:17 Urine RBC 0 /HPF (NEGATIVE) 02/20/17 07:17 Urine WBC 5-8 /HPF (NEGATIVE) 02/20/17 07:17 Ur Squamous Epith Cells Few /HPF (NEGATIVE) 02/20/17 07:17 Urine Bacteria Trace /HPF (NEGATIVE) 02/20/17 07:17 Ur Culture Indicated? No/not indicated 02/20/17 07:17 - Plan (1) Syncope, near Status: Acute Plan: TELEMETRY, CONTINUE TO HYDRATE, CONTINUE TO MONITOR (2) Weakness Status: Acute Plan: CONTINUE IV FLUIDS, CONTINUE TO MONITOR PATIENT AND LABS (3) Chest pain Status: Acute Qualifiers: Chest pain type: unspecified Qualified Code(s): R07.9 - Chest pain, unspecified Plan: SERIAL CARDIAC ENZYMES AND EKG, CONTINUE TO MONITOR
== END 2017-02-21 12:50 | disposition home or self-care (01) ==
LOC: ER 14:10 → MED/SURG 18:55
PROVIDERS: ADMIT Internal Medicine; ATTEND Internal Medicine
DX: R55 Syncope and collapse (principal); R07.89 Other chest pain; R53.1 Weakness; M25.552 Pain in left hip; M25.562 Pain in left knee; M13.89 Other specified arthritis, multiple sites; I51.7 Cardiomegaly; R94.31 Abnormal electrocardiogram [ECG] [EKG]; R06.02 Shortness of breath; I10 Essential (primary) hypertension; E03.8 Other specified hypothyroidism; R26.89 Other abnormalities of gait and mobility; D64.89 Other specified anemias; R94.4 Abnormal results of kidney function studies; Z79.899 Other long term (current) drug therapy
CPT/HCPCS: 36415; 71010; 73501; 73560; 80053; 81001; 82550; 82553; 84484; 85025; 93005; 94760; 96365; 96374; 96375; 99284; A4222; G0378; J2270; J2405

== ENCOUNTER 2017-07-22 17:26 | Observation (INO) | payer OTHER ==
[2017-07-22 19:53] LABS: BASOPHILS # (AUTO) 0.2 X10^3/uL (0.0-0.1); BASOPHILS % (AUTO) 2.7 % (0.2-1.0); EOSINOPHILS # (AUTO) 0.1 x10^3/uL (0.0-0.2); EOSINOPHILS % (AUTO) 1.9 % (0.9-2.9); HEMATOCRIT 34.3 % (36.0-47.0); HEMOGLOBIN 11.6 g/dL (12.0-16.0); LYMPHOCYTES # (AUTO) 2.6 X10^3/uL (1.3-2.9); MEAN CORPUSCULAR HEMOGLOBIN 33.7 pg (27.0-34.0); MEAN CORPUSCULAR HGB CONC 33.9 g/dL (33.0-35.0); MEAN CORPUSCULAR VOLUME 99.5 fL (80.0-100.0); MEAN PLATELET VOLUME 7.8 fL (7.4-11.0); MONOCYTES # (AUTO) 0.8 x10^3/uL (0.3-0.8); MONOCYTES % (AUTO) 11.3 % (0.0-13.0); NEUTROPHILS # (AUTO) 3.6 x10^3/uL (2.2-4.8); NEUTROPHILS % (AUTO) 49.1 % (42.0-75.0); PLATELET COUNT 575 X10^3/uL (150.0-450.0); RED BLOOD COUNT 3.44 X10^6/uL (3.5-5.4); RED CELL DISTRIBUTION WIDTH 17.1 % (11.6-16.5); WHITE BLOOD COUNT 7.3 X10^3/uL (3.6-10.0)
[2017-07-22 20:05] LABS: GIANT PLATELET RARE; PLATELET MORPHOLOGY COMMENT ABNORMAL (NORMAL)
[2017-07-22 20:07] LABS: ANISOCYTOSIS SLIGHT
[2017-07-22 20:15] LABS: ALANINE AMINOTRANSFERASE 12 Units/L (12-78); ALBUMIN 3.7 g/dL (3.4-5.0); ALKALINE PHOSPHATASE 64 Units/L (46-116); ASPARTATE AMINO TRANSFERASE 15 Units/L (15-37); BLOOD UREA NITROGEN 31 mg/dL (7-18); CALCIUM 11.7 mg/dL (8.5-10.1); CHLORIDE 103 mmol/L (98-107); CKMB % 1.5 % (<4); CREATINE KINASE 101 Units/L (26-192); CREATINE KINASE MB 1.5 ng/mL (0-4.0); CREATININE 1.86 mg/dL (0.55-1.02); SODIUM 140 mmol/L (136-145); TOTAL PROTEIN 7.3 g/dL (6.4-8.2); TROPONIN I 0.02 ng/mL (0-1.5); eGFR BLACK RACES 33 (>60); eGFR NON BLACK RACES 27 (>60)
[2017-07-22 21:08] VITALS: BMI 25.9
[2017-07-22] MEDS: NS 1000 ML 1,000 ML IV SCH (22:01)
[2017-07-22 22:04] LABS: BILIRUBIN,URINE NEGATIVE (NEGATIVE); BLOOD/HEMOGLOBIN,URINE NEGATIVE (NEGATIVE); GLUCOSE, URINE NEGATIVE (NEGATIVE); KETONES,URINE NEGATIVE (NEGATIVE); LEUKOCYTE ESTERASE ,URINE 2+ (NEGATIVE); NITRITES,URINE NEGATIVE (NEGATIVE); PROTEIN,URINE NEGATIVE (NEGATIVE); UROBILINOGEN,URINE NORMAL (NORMAL)
[2017-07-22 22:14] LABS: APPEARANCE,URINE SLIGHTLY HAZY (CLEAR); COLOR,URINE YELLOW (YELLOW); RBC,URINE 0-1 /HPF (NEGATIVE)
[2017-07-22 22:15] LABS: BACTERIA,URINE TRACE /HPF (NEGATIVE); HYALINE CASTS, URINE RARE /LPF (NEGATIVE); SQUAMOUS EPITHELIAL CELL,UR RARE /HPF (NEGATIVE)
[2017-07-22] MEDS: MILK OF MAGNESIA PO SCH (22:34)
[2017-07-22] MEDS: COLACE CAP 100 MG PO SCH (22:35)
[2017-07-22] MEDS ORDERED: MAG-OX TAB PO ONE (22:38)
--- NOTE | 2017-07-22 22:38 | RAD ---
Indication: Shortness of breath Exam: Portable chest Comparison: 02/19/2017 Findings: The heart is mildly enlarged but unchanged. The pulmonary vessels are top normal . The lung s are hypoinflated with no obvious consolidation or effusion. The bones are intact. Impression: Stable cardiomegaly with no acute pulmonary abnormality. Reported By:
[2017-07-22] MEDS ORDERED: K-LYTE EFFERVESCENT PO ONE (22:39)
[2017-07-22 23:50] LABS: CKMB % 1.3 % (<4); CREATINE KINASE MB 1.2 ng/mL (0-4.0); TROPONIN I 0.03 ng/mL (0-1.5)
[2017-07-23] MEDS: REQUIP PO SCH ×2 (00:45→20:33)
[2017-07-23 04:44] LABS: BASOPHILS # (AUTO) 0.1 X10^3/uL (0.0-0.1); BASOPHILS % (AUTO) 2.1 % (0.2-1.0); EOSINOPHILS # (AUTO) 0.2 x10^3/uL (0.0-0.2); EOSINOPHILS % (AUTO) 2.7 % (0.9-2.9); HEMATOCRIT 29.8 % (36.0-47.0); HEMOGLOBIN 10.2 g/dL (12.0-16.0); LYMPHOCYTES # (AUTO) 2.3 X10^3/uL (1.3-2.9); LYMPHOCYTES % (AUTO) 33.4 % (21.0-51.0); MEAN CORPUSCULAR HEMOGLOBIN 33.9 pg (27.0-34.0); MEAN CORPUSCULAR HGB CONC 34.4 g/dL (33.0-35.0); MEAN CORPUSCULAR VOLUME 98.5 fL (80.0-100.0); MONOCYTES # (AUTO) 1.1 x10^3/uL (0.3-0.8); MONOCYTES % (AUTO) 15.9 % (0.0-13.0); NEUTROPHILS # (AUTO) 3.2 x10^3/uL (2.2-4.8); NEUTROPHILS % (AUTO) 45.9 % (42.0-75.0); PLATELET COUNT 504 X10^3/uL (150.0-450.0); RED BLOOD COUNT 3.02 X10^6/uL (3.5-5.4); RED CELL DISTRIBUTION WIDTH 16.6 % (11.6-16.5); WHITE BLOOD COUNT 6.9 X10^3/uL (3.6-10.0)
[2017-07-23 05:00] LABS: ALANINE AMINOTRANSFERASE 11 Units/L (12-78); ALBUMIN 3.1 g/dL (3.4-5.0); ALKALINE PHOSPHATASE 53 Units/L (46-116); ASPARTATE AMINO TRANSFERASE 14 Units/L (15-37); BLOOD UREA NITROGEN 27 mg/dL (7-18); CALCIUM 10.5 mg/dL (8.5-10.1); CARBON DIOXIDE 27.9 mmol/L (21-32); CHLORIDE 104 mmol/L (98-107); CKMB % 1.3 % (<4); COR CA(FOR HYPOALB) 11.2 mg/dL (8.5-10.1); COR NA(FOR HYPERGLY) 139 mmol/L (136-145); CREATINE KINASE 79 Units/L (26-192); CREATINE KINASE MB < 1.0 ng/mL (0-4.0); CREATININE 1.52 mg/dL (0.55-1.02); SODIUM 139 mmol/L (136-145); TOTAL PROTEIN 6.3 g/dL (6.4-8.2); TROPONIN I 0.03 ng/mL (0-1.5); eGFR BLACK RACES 42 (>60); eGFR NON BLACK RACES 34 (>60)
[2017-07-23 06:11] LABS: PLATELET MORPHOLOGY COMMENT NORMAL (NORMAL)
[2017-07-23] MEDS: MILK OF MAGNESIA PO SCH ×2 (09:49→20:38)
[2017-07-23] MEDS: NS 1000 ML 1,000 ML IV SCH ×3 (10:08→23:55)
[2017-07-23] MEDS: EFFEXOR TAB 37.5 MG (BID DOSING) PO SCH ×2 (10:08→20:33)
[2017-07-23] MEDS: ALBUMIN HUMAN 25%- 100ML 100 ML IV SCH (10:08)
[2017-07-23] MEDS ORDERED: KLONOPIN TAB 1 MG PO PRN (17:02)
[2017-07-23] MEDS ORDERED: DILTIAZEM HCL PO SCH (17:15)
[2017-07-23] MEDS: HYDROCHLOROTHIAZIDE 12.5 MG CAP PO SCH (17:55)
[2017-07-23] MEDS: SYNTHROID 25 mcg TAB PO SCH (17:55)
[2017-07-23] MEDS ORDERED: HYDREA PO SCH (18:00)
[2017-07-23] MEDS: COLACE CAP 100 MG PO SCH (20:32)
[2017-07-23] MEDS: TAMBOCOR PO SCH (20:33)
[2017-07-23] MEDS ORDERED: DESYREL PO SCH (21:00)
[2017-07-24 06:21] LABS: BASOPHILS # (AUTO) 0.1 X10^3/uL (0.0-0.1); EOSINOPHILS # (AUTO) 0.3 x10^3/uL (0.0-0.2); EOSINOPHILS % (AUTO) 4.8 % (0.9-2.9); HEMATOCRIT 29.2 % (36.0-47.0); LYMPHOCYTES # (AUTO) 2.5 X10^3/uL (1.3-2.9); LYMPHOCYTES % (AUTO) 37.5 % (21.0-51.0); MEAN CORPUSCULAR HEMOGLOBIN 33.8 pg (27.0-34.0); MEAN CORPUSCULAR HGB CONC 34.3 g/dL (33.0-35.0); MEAN CORPUSCULAR VOLUME 98.5 fL (80.0-100.0); MEAN PLATELET VOLUME 7.4 fL (7.4-11.0); MONOCYTES # (AUTO) 0.9 x10^3/uL (0.3-0.8); MONOCYTES % (AUTO) 13.8 % (0.0-13.0); NEUTROPHILS # (AUTO) 2.8 x10^3/uL (2.2-4.8); NEUTROPHILS % (AUTO) 41.9 % (42.0-75.0); PLATELET COUNT 484 X10^3/uL (150.0-450.0); RED BLOOD COUNT 2.97 X10^6/uL (3.5-5.4); RED CELL DISTRIBUTION WIDTH 16.5 % (11.6-16.5); WHITE BLOOD COUNT 6.7 X10^3/uL (3.6-10.0)
[2017-07-24 06:46] LABS: ALANINE AMINOTRANSFERASE 7 Units/L (12-78); ALBUMIN 3.2 g/dL (3.4-5.0); ALKALINE PHOSPHATASE 48 Units/L (46-116); ASPARTATE AMINO TRANSFERASE 13 Units/L (15-37); BLOOD UREA NITROGEN 19 mg/dL (7-18); CALCIUM 9.5 mg/dL (8.5-10.1); CARBON DIOXIDE 25.3 mmol/L (21-32); CHLORIDE 105 mmol/L (98-107); COR CA(FOR HYPOALB) 10.1 mg/dL (8.5-10.1); CREATININE 1.32 mg/dL (0.55-1.02); SODIUM 140 mmol/L (136-145); TOTAL PROTEIN 6.2 g/dL (6.4-8.2); eGFR BLACK RACES 49 (>60); eGFR NON BLACK RACES 41 (>60)
[2017-07-24] MEDS ORDERED: MAG-OX TAB PO PRN (07:43)
[2017-07-24] MEDS ORDERED: POTASSIUM CHL 60 MEQ/NS 0.45% 500 ML IV PRN (07:43)
[2017-07-24] MEDS ORDERED: K-RIDER 10 MEQ/NS 100 ML 10 MEQ/100 ML BAG IV PRN (07:43)
[2017-07-24] MEDS ORDERED: MAGNESIUM SULFATE 1 GM/100 mL PREMIX 1 GM/100 ML BAG IV PRN (07:43)
[2017-07-24] MEDS ORDERED: POTASSIUM CHLORIDE LIQ 20 MEQ UDC PO PRN (07:43)
[2017-07-24] MEDS ORDERED: K-LYTE EFFERVESCENT PO PRN (07:43)
[2017-07-24] MEDS ORDERED: POTASSIUM CHL 40 MEQ/NS 0.45% 500 ML IV PRN (07:43)
[2017-07-24] MEDS: EFFEXOR TAB 37.5 MG (BID DOSING) PO SCH (08:24)
[2017-07-24] MEDS: TAMBOCOR PO SCH (08:24)
[2017-07-24] MEDS: HYDROCHLOROTHIAZIDE 12.5 MG CAP PO SCH (08:24)
[2017-07-24] MEDS: SYNTHROID 25 mcg TAB PO SCH (08:24)
[2017-07-24] MEDS: ALBUMIN HUMAN 25%- 100ML 100 ML IV SCH (08:26)
[2017-07-24] MEDS: MILK OF MAGNESIA PO SCH (08:27)
[2017-07-24] MEDS ORDERED: CARDIZEM CD 180 MG PO SCH (09:00)
[2017-07-24 10:08] VITALS: BP 188/83
[2017-07-24] MEDS: NS 1000 ML 1,000 ML IV SCH (11:24)
--- NOTE | 2017-07-24 13:16 | DR.UPDATE ---
H&P Update History and Physical Update: WAS SEEN IN THE OFFICE ON 07/22/17. A H&P WAS COMPLETED PRIOR TO ADMISSION. PATIENT HAS BEEN SEEN AND EXAMINED WITH NO CHANGES NOTED TO H&P. Changes noted: NO Yes with the following:
--- NOTE | 2017-07-25 10:11 | PCM.PROG ---
Progress Note - Progress Note for Day of Date: 07/23/17 - Subjective Subjective: WAS ADMITTED FOR DEHYDRATION, WEAKNESS, DIZZINESS, AND HYPERTENSION. TODAY, SHE IS ALERT AND ORIENTED, SITTING UP IN BED ON MORNING ROUNDS. PATIENTS FAMILY IS AT BEDSIDE. SHE CONTINUES WITH COMPLAINTS OF GENERALIZED WEAKNESS. FAMILY REPORTS THAT PATIENT HAS EXHIBITED SIGNS OF DEPRESSION. THEY REPORT THAT PATIENT ONLY SITS AROUND AT HOME AND OFTEN CRIES A LOT. ON EXAMINATION, HEART IS REGULAR IN RATE AND RHYTHM. BILATERAL LUNGS ARE NOTED WITH DIMINISHED LUNG SOUNDS THROUGHOUT. ABDOMEN IS ROUND, SOFT, AND NON- TENDER WITH NORMAL BOWEL SOUNDS NOTED IN ALL QUADRANTS. HER VITALS THIS MORNING ARE 98.5-80-20-91%-183/77. LABS WERE OBTAINED. ABNORMAL LAB VALUES INCUDE THE FOLLOWING: RBC 3.02, HGB 10.2, HCT 29.8, PLT COUNT 504, BUN 27, CREATININE 1.52 , GLUCOSE 112, CALCIUM 10.5, AST 14, ALT 11, TOTAL PTOREIN 6.3, ALBUMIN 3.1. CARDIAC ENZYMES AND EKGs HAVE BEEN WITHIN NORMAL LIMITS. TODAY, WE PLAN TO CONTINUE IV FLUIDS FOR DEHYDRATION. WE WILL ALSO START EFFEXOR 37.5MG PO BID. WE WILL RESUME HOME MEDICATIONS APPROPRIATE. OTHERWISE, WE WILL CONTINUE WITH CURRENT PLAN OF CARE AND FOLLOW UP WITH AM LABS AND CONTINUE TO MONITOR PATIENT. - Past Medical Family Social History Past Med/Fam/Surg Hx: No changes since H&P Allergies: Allergies ciprofloxacin Allergy (Verified 02/19/17 19:46) metronidazole Allergy (Verified 02/19/17 19:46) - Review of Systems ROS: No change since H&P - Vital Signs and I&O's Vital Signs: Temperature 98.8 F Pulse Rate [Left Radial] 85 Respiratory Rate 20 Blood Pressure [Left Arm] 183/77 Blood Pressure [Right Arm] 188/83 Blood Pressure 151/70 O2 Sat by Pulse Oximetry 92 Intake and Output: Intake & Output 07/22/17 07/23/17 07/24/17 07/25/17 11:59 11:59 11:59 11:59 Intake Total 1990 3600 Output Total 600 Balance 1390 3600 - Physical Exam Oriented: Normal Eyes: Normal Ear: Normal Nose: Normal Throat: Normal Respiratory: Diminished Cardiovascular: Normal : Normal Auscultation: Bowel Sounds: Normal Palpation: Normal Tenderness: Normal Skin: Decreased [place] Musculoskeletal: Normal Psychiatric: Normal Mood Description: Calm Affect: Normal Speech Pattern: Clear, Appropriate - Laboratory and Diagnostics Result Diagrams: 07/24/17 04:37 07/24/17 04:37 Labs: Laboratory WBC 6.7 X10^3/uL (3.6-10.0) 07/24/17 04:37 RBC 2.97 X10^6/uL (3.5-5.4) L 07/24/17 04:37 Hgb 10.0 g/dL (12.0-16.0) L 07/24/17 04:37 Hct 29.2 % (36.0-47.0) L 07/24/17 04:37 MCV 98.5 fL (80.0-100.0) 07/24/17 04:37 MCH 33.8 pg (27.0-34.0) 07/24/17 04:37 MCHC 34.3 g/dL (33.0-35.0) 07/24/17 04:37 RDW 16.5 % (11.6-16.5) 07/24/17 04:37 Plt Count 484 X10^3/uL (150.0-450.0) H 07/24/17 04:37 Plt Count Comment Adequate (ADEQUATE) 07/23/17 04:00 MPV 7.4 fL (7.4-11.0) 07/24/17 04:37 Neut % 41.9 % (42.0-75.0) L 07/24/17 04:37 Lymph % 37.5 % (21.0-51.0) 07/24/17 04:37 [place] % 13.8 % (0.0-13.0) H 07/24/17 04:37 Eos % 4.8 % (0.9-2.9) H 07/24/17 04:37 Baso % 2.0 % (0.2-1.0) H 07/24/17 04:37 Neut # 2.8 x10^3/uL (2.2-4.8) 07/24/17 04:37 Lymph # 2.5 X10^3/uL (1.3-2.9) 07/24/17 04:37 [place] # 0.9 x10^3/uL (0.3-0.8) H 07/24/17 04:37 Eos # 0.3 x10^3/uL (0.0-0.2) H 07/24/17 04:37 Baso # 0.1 X10^3/uL (0.0-0.1) 07/24/17 04:37 Absolute Nucleated RBC 0.1 /100WBC 07/24/17 04:37 Total Counted 100 07/23/17 04:00 Neutrophils % (Manual) 59 % (39-76) 07/23/17 04:00 Lymphocytes % (Manual) 27 % (13-43) 07/23/17 04:00 Monocytes % (Manual) 12 % (4-9) H 07/23/17 04:00 Eosinophils % (Manual) 1 % (0-6) 07/23/17 04:00 Atypical Lymphocytes 3 07/22/17 19:43 Giant Platelets Rare 07/22/17 19:43 Plt Morphology Comment Normal (NORMAL) 07/23/17 04:00 RBC Morphology Normal (NORMAL) 07/23/17 04:00 Anisocytosis Slight A 07/22/17 19:43 Sodium 140 mmol/L (136-145) 07/24/17 04:37 Corrected Sodium TNP 07/24/17 04:37 Potassium 3.3 mmol/L (3.5-5.1) L 07/24/17 04:37 Chloride 105 mmol/L (98-107) 07/24/17 04:37 Carbon Dioxide 25.3 mmol/L (21-32) 07/24/17 04:37 BUN 19 mg/dL (7-18) H 07/24/17 04:37 Creatinine 1.32 mg/dL (0.55-1.02) H 07/24/17 04:37 Est GFR (MDRD) Af Amer 49 (>60) L 07/24/17 04:37 Est GFR (MDRD) Non-Af 41 (>60) L 07/24/17 04:37 Glucose 109 mg/dL (65-99) H 07/24/17 04:37 Calcium 9.5 mg/dL (8.5-10.1) 07/24/17 04:37 Corrected Calcium 10.1 mg/dL (8.5-10.1) 07/24/17 04:37 Magnesium 1.3 mg/dL (1.7-2.9) L 07/24/17 04:37 Total Bilirubin 0.20 mg/dL (0.2-1.0) 07/24/17 04:37 AST 13 Units/L (15-37) L 07/24/17 04:37 ALT 7 Units/L (12-78) L 07/24/17 04:37 Alkaline Phosphatase 48 Units/L (46-116) 07/24/17 04:37 Creatine Kinase 79 Units/L (26-192) 07/23/17 04:00 CK-MB (CK-2) < 1.0 ng/mL (0-4.0) 07/23/17 04:00 CK/CKMB % Calc 1.3 % (<4) 07/23/17 04:00 Troponin I 0.03 ng/mL (0-1.5) 07/23/17 04:00 Total Protein 6.2 g/dL (6.4-8.2) L 07/24/17 04:37 Albumin 3.2 g/dL (3.4-5.0) L 07/24/17 04:37 Globulin 3.0 g/dL (2.5-4.5) 07/24/17 04:37 Albumin/Globulin Ratio 1.1 Ratio (1.1-2.1) 07/24/17 04:37 Specimen Type Clean catch urine 07/22/17 21:54 Urine Color Yellow (YELLOW) 07/22/17 21:54 Urine Appearance Slightly hazy (CLEAR) 07/22/17 21:54 Urine pH 5.0 (5.0 - 8.0) 07/22/17 21:54 Ur Specific [place] 1.015 (1.000-1.030) 07/22/17 21:54 Urine Protein Negative (NEGATIVE) 07/22/17 21:54 Urine Glucose (UA) Negative (NEGATIVE) 07/22/17 21:54 Urine Ketones Negative (NEGATIVE) 07/22/17 21:54 Urine Occult Blood Negative (NEGATIVE) 07/22/17 21:54 Urine Nitrite Negative (NEGATIVE) 07/22/17 21:54 Urine Bilirubin Negative (NEGATIVE) 07/22/17 21:54 Urine Urobilinogen Normal (NORMAL) 07/22/17 21:54 Ur Leukocyte Esterase 2+ (NEGATIVE) 07/22/17 21:54 Urine RBC 0-1 /HPF (NEGATIVE) 07/22/17 21:54 Urine WBC 2-6 /HPF (NEGATIVE) 07/22/17 21:54 Ur Squamous Epith Cells Rare /HPF (NEGATIVE) 07/22/17 21:54 Urine Bacteria Trace /HPF (NEGATIVE) 07/22/17 21:54 Hyaline Casts Rare /LPF (NEGATIVE) 07/22/17 21:54 Ur Culture Indicated? No/not indicated 07/22/17 21:54 - Plan (1) Dehydration Status: Acute Plan: NORMAL SALINE, CONTINUE TO MONITOR (2) Generalized weakness Status: Acute Plan: CONTINUE IV FLUIDS, CONTINUE TO MONITOR (3) Hypertension Status: Chronic Qualifiers: Hypertension type: essential hypertension Plan: RESUME HYZAAR, CONTINUE TO MONITOR
== END 2017-07-24 13:20 | disposition home or self-care (01) ==
LOC: MED/SURG 17:26
PROVIDERS: ADMIT Internal Medicine; ATTEND Internal Medicine
DX: E86.0 Dehydration (principal); R53.1 Weakness; I10 Essential (primary) hypertension; R42 Dizziness and giddiness; K21.9 Gastro-esophageal reflux disease without esophagitis; E03.8 Other specified hypothyroidism; R94.31 Abnormal electrocardiogram [ECG] [EKG]; R94.4 Abnormal results of kidney function studies; R26.89 Other abnormalities of gait and mobility; Z79.899 Other long term (current) drug therapy
CPT/HCPCS: 36415; 71045; 80053; 81001; 82550; 82553; 83735; 84484; 85025; 93005; 94760; 97535; A4216; A4222; P9047; S0176; G0378

== ENCOUNTER 2017-12-26 12:55 | Inpatient (IN) ==
[2017-12-26] MEDS ORDERED: PHARMACY CONSULT - DOSE _____ XX SCH (14:00)
[2017-12-26] MEDS ORDERED: ULTRAM PO PRN (19:49)
[2017-12-26 20:05] LABS: BASOPHILS % (AUTO) 0.4 % (0.2-1.0); EOSINOPHILS % (AUTO) 0.1 % (0.9-2.9); HEMATOCRIT 23.4 % (36.0-47.0); LYMPHOCYTES # (AUTO) 1.4 X10^3/uL (1.3-2.9); LYMPHOCYTES % (AUTO) 11.9 % (21.0-51.0); MEAN CORPUSCULAR VOLUME 105.9 fL (80.0-100.0); MEAN PLATELET VOLUME 7.5 fL (7.4-11.0); MONOCYTES # (AUTO) 0.6 x10^3/uL (0.3-0.8); MONOCYTES % (AUTO) 5.6 % (0.0-13.0); NEUTROPHILS # (AUTO) 9.3 x10^3/uL (2.2-4.8); PLATELET COUNT 441 X10^3/uL (150.0-450.0); RED BLOOD COUNT 2.21 X10^6/uL (3.5-5.4); RED CELL DISTRIBUTION WIDTH 14.7 % (11.6-16.5); WHITE BLOOD COUNT 11.3 X10^3/uL (3.6-10.0)
[2017-12-26 20:13] LABS: CARBON DIOXIDE 21.9 mmol/L (21-32); COR CA(FOR HYPOALB) 10.6 mg/dL (8.5-10.1); CREATININE 1.56 mg/dL (0.55-1.02); TOTAL PROTEIN 6.3 g/dL (6.4-8.2)
[2017-12-26 20:21] LABS: ANISOCYTOSIS SLIGHT; PLATELET MORPHOLOGY COMMENT NORMAL (NORMAL)
[2017-12-26 20:28] VITALS: BMI 23.7
[2017-12-26] MEDS: NS 1000 ML 1,000 ML IV SCH (21:12)
[2017-12-26] MEDS: FORTAZ or TAZICEF VIAL INJ 1 G in NS 100 ML IV + SPIKE MINIBAG* 100 ML IV SCH (22:00)
--- NOTE | 2017-12-26 22:07 | RAD ---
AP chest Indication: Left-sided rib pain Comparison: 07/22/2017 Findings: Posterior right 8th through 10th ribs demonstrate subtle cortical regularity more conspicuo us than on prior examination suspicious for age-indeterminate nondisplaced rib fractures. No left-anuradha ed rib fracture identified Heart size is enlarged, unchanged. There is no focal airspace opacity identified within either lung w ith elevation left hemidiaphragm secondary to gaseous dilatation of the transverse and descending col on. No pneumothorax. No definite effusion. Impression: 1.Cortical irregularity within the posterior right 8th through 10th ribs not definitely visualized o n prior examination raises the concern for nondisplaced fractures, correlate for point tenderness in these locaations is recommended to determine acuity of injury. No pneumothorax. 2. Stable cardiomegaly. Reported By:
[2017-12-26 22:51] LABS: BILIRUBIN,URINE NEGATIVE (NEGATIVE); BLOOD/HEMOGLOBIN,URINE 4+ (NEGATIVE); GLUCOSE, URINE NEGATIVE (NEGATIVE); KETONES,URINE NEGATIVE (NEGATIVE); LEUKOCYTE ESTERASE ,URINE 3+ (NEGATIVE); NITRITES,URINE NEGATIVE (NEGATIVE); PROTEIN,URINE 2+ (NEGATIVE); UROBILINOGEN,URINE NORMAL (NORMAL)
[2017-12-26 22:58] LABS: APPEARANCE,URINE CLOUDY (CLEAR); BACTERIA,URINE 2+ /HPF (NEGATIVE); COLOR,URINE YELLOW (YELLOW); SQUAMOUS EPITHELIAL CELL,UR RARE /HPF (NEGATIVE)
[2017-12-26 22:59] LABS: AMORPHOUS SEDIMENT,UR 2+ /HPF (NEGATIVE); RENAL EPITHELIAL CELLS,URINE FEW /HPF (NEGATIVE)
[2017-12-27] MEDS: NS 1000 ML 1,000 ML IV SCH ×3 (02:49→14:15)
[2017-12-27 05:37] LABS: BASOPHILS % (AUTO) 0.3 % (0.2-1.0); EOSINOPHILS % (AUTO) 0.1 % (0.9-2.9); HEMATOCRIT 22.5 % (36.0-47.0); HEMOGLOBIN 7.7 g/dL (12.0-16.0); LYMPHOCYTES # (AUTO) 1.1 X10^3/uL (1.3-2.9); LYMPHOCYTES % (AUTO) 10.2 % (21.0-51.0); MEAN CORPUSCULAR VOLUME 105.8 fL (80.0-100.0); MEAN PLATELET VOLUME 7.8 fL (7.4-11.0); MONOCYTES # (AUTO) 0.4 x10^3/uL (0.3-0.8); MONOCYTES % (AUTO) 3.5 % (0.0-13.0); NEUTROPHILS # (AUTO) 9.7 x10^3/uL (2.2-4.8); NEUTROPHILS % (AUTO) 85.9 % (42.0-75.0); PLATELET COUNT 388 X10^3/uL (150.0-450.0); RED BLOOD COUNT 2.13 X10^6/uL (3.5-5.4); RED CELL DISTRIBUTION WIDTH 14.8 % (11.6-16.5); WHITE BLOOD COUNT 11.2 X10^3/uL (3.6-10.0)
[2017-12-27 05:54] LABS: ALBUMIN 1.7 g/dL (3.4-5.0); CALCIUM 8.5 mg/dL (8.5-10.1); CARBON DIOXIDE 19.2 mmol/L (21-32); COR CA(FOR HYPOALB) 10.3 mg/dL (8.5-10.1); CREATININE 1.32 mg/dL (0.55-1.02); TOTAL PROTEIN 5.5 g/dL (6.4-8.2)
[2017-12-27 06:03] LABS: ANISOCYTOSIS 1+; BAND NEUTROPHILS % 3 % (0-10); PLATELET MORPHOLOGY COMMENT NORMAL (NORMAL)
[2017-12-27] MEDS ORDERED: K-RIDER 10 MEQ/NS 100 ML 10 MEQ/100 ML BAG IV PRN (06:15)
[2017-12-27] MEDS ORDERED: POTASSIUM CHL 60 MEQ/NS 0.45% 500 ML IV PRN (06:15)
[2017-12-27] MEDS ORDERED: POTASSIUM CHL 40 MEQ/NS 0.45% 500 ML IV PRN (06:15)
[2017-12-27] MEDS ORDERED: POTASSIUM CHLORIDE LIQ 20 MEQ UDC PO PRN (06:15)
[2017-12-27] MEDS ORDERED: MELATONIN 1 MG PO PRN (09:55)
[2017-12-27] MEDS ORDERED: ANTIVERT TAB 25 MG PO PRN (09:55)
[2017-12-27] MEDS ORDERED: PATIENT'S HOME MEDICATION (Cholecalciferol (Vitamin D3) [Vitamin D3] 5,000 UNIT) PO SCH (10:00)
[2017-12-27] MEDS ORDERED: HYDREA PO SCH (10:00)
--- NOTE | 2017-12-27 10:00 | DR.H&P ---
H&P - History & Physical for Day of: H&P Date: 12/26/17 - Chief Complaint Chief Complaint: WEAKNESS, UTI, ABDOMINAL PAIN - History of Present Illness History of Present Illness: IS A 87 YEAR OLD PATIENT OF OURS WHO PRESENTED TO THE HOSPITAL A DIRECT ADMISSION WITH COMPLAINTS OF ABDOMINAL PAIN, BURING ON URINATION, AND GENERALIZED WEAKNESS. FAMILY REPORTS THAT PATIENT WAS SEEN AT [facility] YESTERDAY AND TREATED FOR A URINARY TRACT INFECTION. ON ARRIVAL TO THE HOSPITAL, VITALS WERE 98.2-93-18-94%-106/47. LABS WERE OBTAINED. ABNORMAL LAB VALUES INCLUDE THE FOLLOWING: WBC 11.3, RBC 2.21, HGB 8.0, HCT 23.4, SODIUM 126, CHLORIDE 95, BUN 26, CREATININE 1.56, GLUCOSE 116, TOTAL BILI 0.10, AST 14, TOTAL PROTEIN 6.3, ALBUMIN 2.0. URINALYSIS REVEALED WBC 5-10, RBC 10-20, LEUKOCYTES 3+, BACTERIA 2+ , OCCULT BLOOD 4+, PROTEIN 2+. URINE CUTURE IS PENDING. A CHEST XRAY WAS OBTAINED DUE TO LEFT SIDED RIB PAIN AND REVEALED: Cortical irregularity within the posterior right 8th through 10th ribs not definitely visualized on prior examination raises the concern for nondisplaced fractures, correlate for point tenderness in these locations is recommended to determine acuity of injury. No pneumothorax. Stable cardiomegaly. SHE WAS STARTED ON FORTAZ 1GM IV DAILY AND NORMAL SALINE AT 75ML/HR. WE PLAN TO FOLLOW UP WITH AM LABS AND CONTINUE TO MONITOR PATIENT. - Past Medical History Past Medical History: Depression, Hypertension, Hypothyroidism Additional Medical History: Cataracts, Heart murmur, Hiatal Hernia, GI Bleed, Previous Blood Transfusion - Past Surgical History Surgical History: Cholecystectomy, Hysterectomy, Joint Replacement Additional Surgical History: Hernia Repair, Knee Surgery - Family History Family Medical History: Diabetes Mellitus, Hypertension - Social History Does patient currently use any type of tobacco product: No Have you used tobacco products in the last 12 months: No Type of Tobacco Use: None Does any household member use tobacco: No Alcohol Use: None Drug Use: None - Medications Home Medications: ciprofloxacin Allergy (Verified 02/19/17 19:46) metronidazole Allergy (Verified 02/19/17 19:46) CONTINUE taking the following medications acetaminophen [Tylenol Extra Strength] 1,000 mg PO Q6H PRN 12/26/17 [History] aspirin [Ecotrin] 1 tab PO DAILY 12/26/17 [History] cholecalciferol (vitamin D3) [Vitamin D3] 5,000 unit PO DAILY 12/26/17 [History] diltiazem HCl 1 tab PO BID 12/26/17 [History] levofloxacin 1 tab PO DAILY 12/26/17 [History] loperamide 2 mg PO BID PRN 12/26/17 [History] melatonin 1 mg PO HS PRN 12/26/17 [History] montelukast 10 mg PO DAILY 12/26/17 [History] ranitidine HCl 1 tab PO DAILY 12/26/17 [History] - Physical Exam Vital Signs: Temperature 99.6 F Pulse Rate [Right] 92 Respiratory Rate 20 Blood Pressure [Left Arm] 119/56 Blood Pressure [Right Arm] 124/58 Blood Pressure 119/56 O2 Sat by Pulse Oximetry 94 - Allergies Allergies/Adverse Reactions: Allergies Allergy/AdvReac Type Severity Reaction Status Date / Time ciprofloxacin Allergy Verified 02/19/17 19:46 metronidazole Allergy Verified 02/19/17 19:46
[2017-12-27] MEDS: ECOTRIN TAB 325 MG PO SCH (11:02)
[2017-12-27] MEDS: CARDIZEM TAB 30 MG PLAIN PO SCH ×2 (11:03→20:32)
[2017-12-27] MEDS: EFFEXOR XR 37.5 MG CAP PO SCH (11:03)
[2017-12-27] MEDS: SINGULAIR TAB 10 MG PO SCH (11:04)
[2017-12-27] MEDS: SYNTHROID 25 mcg TAB PO SCH (11:04)
[2017-12-27] MEDS: ZANTAC PO SCH (11:04)
[2017-12-27] MEDS: TAMBOCOR PO SCH ×2 (11:04→20:32)
[2017-12-27] MEDS: VITAMIN D3 PO SCH (11:08)
[2017-12-27] MEDS: MAGNESIUM SULFATE 1 GRAM/100 mL PREMIX 1 GM/100 ML BAG IV PRN ×4 (11:09→20:28)
[2017-12-27] MEDS: K-LYTE EFFERVESCENT PO PRN (11:09)
[2017-12-27 11:43] LABS: HEMOGLOBIN 7.3 g/dL (12.0-16.0); RETICULOCYTE % 1.03 % (0.8-2.2)
[2017-12-27 17:38] LABS: HEMOGLOBIN 9.4 g/dL (12.0-16.0)
[2017-12-27] MEDS: DESYREL PO SCH (20:32)
[2017-12-27] MEDS: FORTAZ or TAZICEF VIAL INJ 1 G in NS 100 ML IV + SPIKE MINIBAG* 100 ML IV SCH (20:32)
[2017-12-27] MEDS: REQUIP PO SCH (20:36)
[2017-12-27] MEDS: ULTRAM PO PRN (20:36)
[2017-12-27 23:30] LABS: HEMATOCRIT 21.1 % (36.0-47.0); HEMOGLOBIN 7.3 g/dL (12.0-16.0)
[2017-12-28] MEDS: TYLENOL 500 MG TAB EXTRA STRENGTH PO PRN ×2 (03:38→21:04)
[2017-12-28 04:12] LABS: BASOPHILS # (AUTO) 0.1 X10^3/uL (0.0-0.1); BASOPHILS % (AUTO) 0.6 % (0.2-1.0); EOSINOPHILS # (AUTO) 0.1 x10^3/uL (0.0-0.2); EOSINOPHILS % (AUTO) 0.5 % (0.9-2.9); HEMATOCRIT 24.4 % (36.0-47.0); HEMOGLOBIN 8.4 g/dL (12.0-16.0); LYMPHOCYTES # (AUTO) 1.9 X10^3/uL (1.3-2.9); LYMPHOCYTES % (AUTO) 18.3 % (21.0-51.0); MEAN CORPUSCULAR HEMOGLOBIN 36.8 pg (27.0-34.0); MEAN CORPUSCULAR HGB CONC 34.5 g/dL (33.0-35.0); MEAN CORPUSCULAR VOLUME 106.6 fL (80.0-100.0); MEAN PLATELET VOLUME 7.6 fL (7.4-11.0); MONOCYTES # (AUTO) 0 x10^3/uL (0.3-0.8); MONOCYTES % (AUTO) 0 % (0.0-13.0); NEUTROPHILS # (AUTO) 8.5 x10^3/uL (2.2-4.8); NEUTROPHILS % (AUTO) 80.6 % (42.0-75.0); PLATELET COUNT 412 X10^3/uL (150.0-450.0); RED BLOOD COUNT 2.29 X10^6/uL (3.5-5.4); RED CELL DISTRIBUTION WIDTH 15.1 % (11.6-16.5); WHITE BLOOD COUNT 10.5 X10^3/uL (3.6-10.0)
[2017-12-28 04:22] LABS: ALBUMIN 1.7 g/dL (3.4-5.0); CALCIUM 8.2 mg/dL (8.5-10.1); CARBON DIOXIDE 20.2 mmol/L (21-32); CREATININE 1.24 mg/dL (0.55-1.02); MAGNESIUM 2.4 mg/dL (1.7-2.9); TOTAL PROTEIN 5.5 g/dL (6.4-8.2)
[2017-12-28 04:36] LABS: BAND NEUTROPHILS % 3 % (0-10)
[2017-12-28 04:37] LABS: PLATELET MORPHOLOGY COMMENT NORMAL (NORMAL)
[2017-12-28] MEDS: NS 1000 ML 1,000 ML IV SCH ×3 (04:48→16:55)
[2017-12-28] MEDS: ECOTRIN TAB 325 MG PO SCH (09:14)
[2017-12-28] MEDS: VITAMIN D3 PO SCH (09:14)
[2017-12-28] MEDS: SYNTHROID 25 mcg TAB PO SCH (09:14)
[2017-12-28] MEDS: TAMBOCOR PO SCH ×2 (09:14→21:06)
[2017-12-28] MEDS: EFFEXOR XR 37.5 MG CAP PO SCH (09:14)
[2017-12-28] MEDS: CARDIZEM TAB 30 MG PLAIN PO SCH ×2 (09:14→21:06)
[2017-12-28] MEDS: SINGULAIR TAB 10 MG PO SCH (09:14)
[2017-12-28] MEDS: ZANTAC PO SCH (09:15)
[2017-12-28] MEDS ORDERED: NS 100 ML IV 100 ML with VENOFER 400 MG IV NR ×2 (11:00)
[2017-12-28] MEDS: ULTRAM PO PRN (11:42)
[2017-12-28 12:19] LABS: STOOL FOR WBC POSITIVE (NEGATIVE)
[2017-12-28 12:43] LABS: CRYPTOSPORIDIUM PARVUM ANTIGEN NEGATIVE (NEGATIVE); GIARDIA LAMBLIA ANTIGEN NEGATIVE (NEGATIVE)
[2017-12-28] MEDS: FOLIC ACID TAB 1 MG PO SCH (14:30)
[2017-12-28] MEDS: FORTAZ or TAZICEF VIAL INJ 1 G in NS 100 ML IV + SPIKE MINIBAG* 100 ML IV SCH (21:06)
[2017-12-28] MEDS: DESYREL PO SCH (21:06)
[2017-12-28] MEDS: REQUIP PO SCH (21:07)
[2017-12-29] MEDS: NS 1000 ML 1,000 ML IV SCH ×2 (00:20→06:27)
[2017-12-29 06:10] LABS: BASOPHILS # (AUTO) 0.1 X10^3/uL (0.0-0.1); BASOPHILS % (AUTO) 0.6 % (0.2-1.0); EOSINOPHILS # (AUTO) 0.1 x10^3/uL (0.0-0.2); EOSINOPHILS % (AUTO) 0.9 % (0.9-2.9); HEMOGLOBIN 8.5 g/dL (12.0-16.0); LYMPHOCYTES # (AUTO) 1.7 X10^3/uL (1.3-2.9); LYMPHOCYTES % (AUTO) 18.4 % (21.0-51.0); MEAN CORPUSCULAR HEMOGLOBIN 37.7 pg (27.0-34.0); MEAN CORPUSCULAR HGB CONC 35.5 g/dL (33.0-35.0); MEAN CORPUSCULAR VOLUME 106.2 fL (80.0-100.0); MEAN PLATELET VOLUME 7.3 fL (7.4-11.0); MONOCYTES # (AUTO) 0.5 x10^3/uL (0.3-0.8); MONOCYTES % (AUTO) 5.7 % (0.0-13.0); NEUTROPHILS # (AUTO) 7.1 x10^3/uL (2.2-4.8); NEUTROPHILS % (AUTO) 74.4 % (42.0-75.0); PLATELET COUNT 418 X10^3/uL (150.0-450.0); RED BLOOD COUNT 2.26 X10^6/uL (3.5-5.4); WHITE BLOOD COUNT 9.5 X10^3/uL (3.6-10.0)
[2017-12-29 06:19] LABS: ALANINE AMINOTRANSFERASE 16 Units/L (12-78); ALBUMIN 1.5 g/dL (3.4-5.0); ALKALINE PHOSPHATASE 92 Units/L (46-116); ASPARTATE AMINO TRANSFERASE 24 Units/L (15-37); BLOOD UREA NITROGEN 17 mg/dL (7-18); CALCIUM 7.8 mg/dL (8.5-10.1); CARBON DIOXIDE 19.3 mmol/L (21-32); CHLORIDE 107 mmol/L (98-107); COR CA(FOR HYPOALB) 9.8 mg/dL (8.5-10.1); COR NA(FOR HYPERGLY) 137 mmol/L (136-145); CREATININE 1.18 mg/dL (0.55-1.02); SODIUM 136 mmol/L (136-145); TOTAL PROTEIN 5.2 g/dL (6.4-8.2); eGFR NON BLACK RACES 46 (>60)
[2017-12-29 06:20] LABS: BAND NEUTROPHILS % 3 % (0-10); PLATELET MORPHOLOGY COMMENT NORMAL (NORMAL)
[2017-12-29] MEDS: EFFEXOR XR 37.5 MG CAP PO SCH (08:21)
[2017-12-29] MEDS: SYNTHROID 25 mcg TAB PO SCH (08:21)
[2017-12-29] MEDS: CARDIZEM TAB 30 MG PLAIN PO SCH (08:21)
[2017-12-29] MEDS: ECOTRIN TAB 325 MG PO SCH (08:21)
[2017-12-29] MEDS: SINGULAIR TAB 10 MG PO SCH (08:22)
[2017-12-29] MEDS: FOLIC ACID TAB 1 MG PO SCH (08:22)
[2017-12-29] MEDS: TAMBOCOR PO SCH (08:22)
[2017-12-29] MEDS: ZANTAC PO SCH (08:22)
[2017-12-29] MEDS: VITAMIN D3 PO SCH (08:23)
[2017-12-29] MEDS: K-LYTE EFFERVESCENT PO PRN (08:31)
[2017-12-29 13:23] VITALS: BP 144/63
== END 2017-12-29 15:00 | disposition home health service (06) | DRG 641 ==
LOC: MED/SURG → OBSVTOIN 19:03
PROVIDERS: ADMIT Internal Medicine; ATTEND Internal Medicine
DX: F32.89 Other specified depressive episodes; E87.1 Hypo-osmolality and hyponatremia; N39.0 Urinary tract infection, site not specified; I10 Essential (primary) hypertension; E86.0 Dehydration; E03.8 Other specified hypothyroidism; R10.84 Generalized abdominal pain; R53.1 Weakness; D63.8 Anemia in other chronic diseases classified elsewhere
CPT/HCPCS: 36415; 71010; 71045; 80053; 81001; 82270; 82607; 82728; 82746; 83540; 83630; 83735; 84466; 85014; 85018; 85025; 85045; 85060; 87045; 87086; 87328; 87329; 87427; 87449; 87493; 87899; 94760; A4216; A4222; S0176; J0713; J1756; J3475; J7030; J7050; J8499

== ENCOUNTER 2017-12-31 15:24 | Inpatient (IN) ==
[2017-12-31] MEDS: NS 1000 ML 1,000 ML IV SCH (18:13)
[2017-12-31 18:26] LABS: BASOPHILS % (AUTO) 0.3 % (0.2-1.0); EOSINOPHILS % (AUTO) 0.1 % (0.9-2.9); LYMPHOCYTES # (AUTO) 1.4 X10^3/uL (1.3-2.9); LYMPHOCYTES % (AUTO) 15.6 % (21.0-51.0); MEAN CORPUSCULAR HEMOGLOBIN 36.2 pg (27.0-34.0); MEAN CORPUSCULAR VOLUME 106.4 fL (80.0-100.0); MEAN PLATELET VOLUME 6.8 fL (7.4-11.0); MONOCYTES # (AUTO) 0.2 x10^3/uL (0.3-0.8); MONOCYTES % (AUTO) 1.9 % (0.0-13.0); NEUTROPHILS # (AUTO) 7.2 x10^3/uL (2.2-4.8); NEUTROPHILS % (AUTO) 82.1 % (42.0-75.0); PLATELET COUNT 456 X10^3/uL (150.0-450.0); RED BLOOD COUNT 1.84 X10^6/uL (3.5-5.4); RED CELL DISTRIBUTION WIDTH 15.2 % (11.6-16.5); WHITE BLOOD COUNT 8.8 X10^3/uL (3.6-10.0)
--- NOTE | 2017-12-31 18:32 | RAD ---
Exam: Portable chest History: 87-year-old female with acute shortness of breath. Comparison: Previous chest radiograph from 12/26/2017. Findings: Generalized cardiomegaly is present. No significant vascular congestion however. Lungs are clear with no infiltrate or significant effusion on either side. Impression: Stable cardiomegaly. No acute superimposed abnormality is seen on this exam however. Reported By:
[2017-12-31 18:36] VITALS: BMI 24.7
[2017-12-31 18:36] LABS: HEMATOCRIT 19.6 % (36.0-47.0); HEMOGLOBIN 6.7 g/dL (12.0-16.0)
[2017-12-31 18:38] LABS: ALBUMIN 1.6 g/dL (3.4-5.0); CALCIUM 8.8 mg/dL (8.5-10.1); CARBON DIOXIDE 19.9 mmol/L (21-32); COR CA(FOR HYPOALB) 10.7 mg/dL (8.5-10.1); CREATININE 1.38 mg/dL (0.55-1.02); TOTAL PROTEIN 5.4 g/dL (6.4-8.2)
[2017-12-31 18:53] LABS: HYPOCHROMASIA SLIGHT; PLATELET MORPHOLOGY COMMENT NORMAL (NORMAL)
[2017-12-31] MEDS ORDERED: POTASSIUM CHLORIDE LIQ 20 MEQ UDC PO PRN (18:59)
[2017-12-31] MEDS ORDERED: K-LYTE EFFERVESCENT PO PRN (18:59)
[2017-12-31] MEDS ORDERED: POTASSIUM CHL 60 MEQ/NS 0.45% 500 ML IV PRN (18:59)
[2017-12-31] MEDS ORDERED: K-RIDER 10 MEQ/NS 100 ML 10 MEQ/100 ML BAG IV PRN (18:59)
[2017-12-31 19:10] LABS: LACTIC ACID 2.5 mmol/L (0.4-2.0)
[2017-12-31] MEDS: MAGNESIUM SULFATE 1 GRAM/100 mL PREMIX 1 GM/100 ML BAG IV PRN ×2 (19:32→20:47)
[2017-12-31] MEDS ORDERED: BENADRYL INJ 50 MG VIAL IVP ONE (20:12)
[2017-12-31] MEDS ORDERED: PROTONIX INJ 40 MG VIAL IVP SCH (21:00)
[2017-12-31] MEDS ORDERED: PEPCID 20 MG IV PREMIX* 20 MG/50 ML BAG IV SCH (21:00)
[2017-12-31 21:05] LABS: BILIRUBIN,URINE NEGATIVE (NEGATIVE); BLOOD/HEMOGLOBIN,URINE 2+ (NEGATIVE); GLUCOSE, URINE NEGATIVE (NEGATIVE); KETONES,URINE NEGATIVE (NEGATIVE); LEUKOCYTE ESTERASE ,URINE NEGATIVE (NEGATIVE); NITRITES,URINE NEGATIVE (NEGATIVE); PROTEIN,URINE 2+ (NEGATIVE); UROBILINOGEN,URINE NORMAL (NORMAL)
[2017-12-31 21:11] LABS: APPEARANCE,URINE CLEAR (CLEAR); COLOR,URINE YELLOW (YELLOW)
[2017-12-31 21:12] LABS: AMORPHOUS SEDIMENT,UR TRACE /HPF (NEGATIVE); BACTERIA,URINE NEGATIVE /HPF (NEGATIVE); RBC,URINE 0-2 /HPF (NONE SEEN); SQUAMOUS EPITHELIAL CELL,UR RARE /HPF (NEGATIVE)
[2017-12-31] MEDS: PEPCID 20 MG IV PREMIX* 20 MG/50 ML BAG IV SCH (22:27)
[2017-12-31] MEDS: PROTONIX INJ 40 MG VIAL IVP SCH (22:27)
[2017-12-31] MEDS ORDERED: BENADRYL INJ 50 MG VIAL ONE (23:09)
[2017-12-31] MEDS: TYLENOL 325 MG TAB PO PRN (23:13)
[2017-12-31] MEDS: POTASSIUM CHL 40 MEQ/NS 0.45% 500 ML IV PRN (23:14)
[2017-12-31] MEDS ORDERED: NS 500 ML IV 500 ML IV ONE (23:21)
[2017-12-31] MEDS: NS 500 ML IV 500 ML IV PRN (23:30)
[2018-01-01] MEDS ORDERED: LASIX IVP ONE (01:00)
[2018-01-01] MEDS ORDERED: NS 500 ML IV 500 ML IV ONE (03:36)
[2018-01-01] MEDS: NS 500 ML IV 500 ML IV PRN (03:50)
[2018-01-01 09:20] LABS: BASOPHILS # (AUTO) 0.1 X10^3/uL (0.0-0.1); BASOPHILS % (AUTO) 0.8 % (0.2-1.0); EOSINOPHILS % (AUTO) 0.4 % (0.9-2.9); HEMATOCRIT 24.6 % (36.0-47.0); LYMPHOCYTES # (AUTO) 1.9 X10^3/uL (1.3-2.9); LYMPHOCYTES % (AUTO) 22.8 % (21.0-51.0); MEAN CORPUSCULAR HEMOGLOBIN 34.8 pg (27.0-34.0); MEAN CORPUSCULAR HGB CONC 35.2 g/dL (33.0-35.0); MEAN CORPUSCULAR VOLUME 98.8 fL (80.0-100.0); MEAN PLATELET VOLUME 7.3 fL (7.4-11.0); MONOCYTES # (AUTO) 0.5 x10^3/uL (0.3-0.8); MONOCYTES % (AUTO) 6.2 % (0.0-13.0); NEUTROPHILS # (AUTO) 5.8 x10^3/uL (2.2-4.8); NEUTROPHILS % (AUTO) 69.8 % (42.0-75.0); PLATELET COUNT 389 X10^3/uL (150.0-450.0); RED BLOOD COUNT 2.49 X10^6/uL (3.5-5.4); RED CELL DISTRIBUTION WIDTH 18.9 % (11.6-16.5); WHITE BLOOD COUNT 8.3 X10^3/uL (3.6-10.0)
[2018-01-01 09:22] LABS: HEMOGLOBIN 8.7 g/dL (12.0-16.0)
[2018-01-01 09:23] LABS: ALANINE AMINOTRANSFERASE 15 Units/L (12-78); ALBUMIN 1.6 g/dL (3.4-5.0); ALKALINE PHOSPHATASE 82 Units/L (46-116); ASPARTATE AMINO TRANSFERASE 16 Units/L (15-37); BLOOD UREA NITROGEN 24 mg/dL (7-18); CALCIUM 8.2 mg/dL (8.5-10.1); CARBON DIOXIDE 21.6 mmol/L (21-32); CHLORIDE 106 mmol/L (98-107); COR CA(FOR HYPOALB) 10.1 mg/dL (8.5-10.1); CREATININE 1.13 mg/dL (0.55-1.02); SODIUM 138 mmol/L (136-145); TOTAL PROTEIN 5.2 g/dL (6.4-8.2); eGFR NON BLACK RACES 49 (>60)
[2018-01-01] MEDS: PROTONIX INJ 40 MG VIAL IVP SCH ×2 (09:30→20:11)
[2018-01-01] MEDS: PEPCID 20 MG IV PREMIX* 20 MG/50 ML BAG IV SCH ×2 (09:30→20:11)
[2018-01-01] MEDS: NS 1000 ML 1,000 ML IV SCH (09:30)
[2018-01-01 09:52] LABS: BAND NEUTROPHILS % 2 % (0-10); PLATELET MORPHOLOGY COMMENT NORMAL (NORMAL)
[2018-01-01 09:54] LABS: ANISOCYTOSIS 2+; HYPOCHROMASIA 1+
[2018-01-01] MEDS ORDERED: IMODIUM CAP 2 MG PO PRN (14:17)
[2018-01-01] MEDS ORDERED: ANTIVERT TAB 25 MG PO PRN (14:19)
[2018-01-01] MEDS: EFFEXOR XR 37.5 MG CAP PO SCH (15:51)
[2018-01-01] MEDS: SYNTHROID 25 mcg TAB PO SCH (15:51)
[2018-01-01] MEDS: VITAMIN D3 PO SCH (15:51)
[2018-01-01] MEDS ORDERED: DULCOLAX TAB EC 5 MG PO ONE ×2 (16:43→22:00)
--- NOTE | 2018-01-01 16:51 | DR.CONSULT ---
Consult - Consultation for Day of: Date: 01/01/18 - Chief Complaint Chief Complaint: Patient referred for occult GI Bleed. Patient denies any GI complaints - History of Present Illness History of Present Illness: Patient is a 87yo female who was referred for occult GI Bleed. Patinet denies dysphagia, dyspepsia, nausea, vomiting, abdominal pain, constipation, diarrhea, melena and hematochezia. Mild left lower abdominal tenderness noted on palpitation. Last EGD was 07/05/16 which showed moderated gastritis, mild distal esophagitis, small hiatal hernia, zenkers diverticulum. Patient has not had a colonoscopy in over 30 years. Patient with Hgb 6.7 on arrival recieved 2 units of PRBC and Hgb is now up to 8.7. - Past Medical History Past Medical History: Depression, Hypertension, Hypothyroidism Additional Medical History: Cataracts, Heart murmur, Hiatal Hernia, GI Bleed, Previous Blood Transfusion - Past Surgical History Surgical History: Cholecystectomy, Hysterectomy, Joint Replacement Additional Surgical History: Hernia Repair, Knee Surgery - Family History Family Medical History: Diabetes Mellitus, Hypertension - Social History Does patient currently use any type of tobacco product: No Have you used tobacco products in the last 12 months: No Type of Tobacco Use: None Does any household member use tobacco: No Alcohol Use: None Drug Use: None - Medications Home Medications: ciprofloxacin Allergy (Verified 02/19/17 19:46) metronidazole Allergy (Verified 02/19/17 19:46) - Review of Systems Constitutional: Weakness Eyes: No Symptoms Reported ENT: No Symptoms Reported Respiratory: No Symptoms Reported Cardiovascular: No Symptoms Reported Gastrointestinal: No Symptoms Reported Genitourinary: No Symptoms Reported Musculoskeletal: No Symptoms Reported Skin: No Symptoms Reported Neurological: Weakness - Physical Exam Vital Signs: Temperature 98.1 F Pulse Rate [Left Brachial] 79 Respiratory Rate 17 Blood Pressure [Left Arm] 127/60 Blood Pressure [Right Arm] 138/65 Blood Pressure 144/63 O2 Sat by Pulse Oximetry 100 Oriented: Normal Eyes: Normal Ear: Normal Nose: Normal Throat: Normal Respiratory: Clear Throughout Cardiovascular: Normal : Normal Auscultation: Bowel Sounds: Normal Palpation: Normal Tenderness: LLQ Skin: Normal Musculoskeletal: Normal Psychiatric: Normal Mood Description: Calm Affect: Normal Speech Pattern: Clear - Plan Plan: Assessment. 1. Anemia r/o GI Loss. Plan. 1. Monitor Hgb, Transfuse as needed, Protonix IV, Iron, B12, Folate levels, Colonoscopy in am. Plan reviewed with Dr. Flor - Allergies Allergies/Adverse Reactions: Allergies Allergy/AdvReac Type Severity Reaction Status Date / Time ciprofloxacin Allergy Verified 02/19/17 19:46 metronidazole Allergy Verified 02/19/17 19:46
[2018-01-01] MEDS ORDERED: MIRALAX POWDER (255 GRAMS BTL) PO NR (17:00)
[2018-01-01 17:31] LABS: IRON 36 ug/dL (50-175)
[2018-01-01] MEDS: CARDIZEM TAB 30 MG PLAIN PO SCH (20:11)
[2018-01-01] MEDS: TAMBOCOR PO SCH (20:11)
[2018-01-01] MEDS: REQUIP PO SCH (20:11)
[2018-01-01] MEDS: DESYREL PO SCH (20:11)
[2018-01-01] MEDS: SINGULAIR TAB 10 MG PO SCH (20:11)
[2018-01-02] MEDS: NS 1000 ML 1,000 ML IV SCH ×2 (01:00→13:27)
[2018-01-02 06:52] LABS: BASOPHILS # (AUTO) 0.1 X10^3/uL (0.0-0.1); BASOPHILS % (AUTO) 0.7 % (0.2-1.0); EOSINOPHILS % (AUTO) 0.2 % (0.9-2.9); HEMATOCRIT 23.7 % (36.0-47.0); HEMOGLOBIN 8.4 g/dL (12.0-16.0); LYMPHOCYTES # (AUTO) 1.2 X10^3/uL (1.3-2.9); LYMPHOCYTES % (AUTO) 14.5 % (21.0-51.0); MEAN CORPUSCULAR HEMOGLOBIN 34.9 pg (27.0-34.0); MEAN CORPUSCULAR HGB CONC 35.3 g/dL (33.0-35.0); MEAN CORPUSCULAR VOLUME 98.7 fL (80.0-100.0); MEAN PLATELET VOLUME 6.8 fL (7.4-11.0); MONOCYTES # (AUTO) 0.5 x10^3/uL (0.3-0.8); MONOCYTES % (AUTO) 5.4 % (0.0-13.0); NEUTROPHILS # (AUTO) 6.7 x10^3/uL (2.2-4.8); NEUTROPHILS % (AUTO) 79.2 % (42.0-75.0); PLATELET COUNT 362 X10^3/uL (150.0-450.0); RED CELL DISTRIBUTION WIDTH 19.4 % (11.6-16.5); WHITE BLOOD COUNT 8.5 X10^3/uL (3.6-10.0)
[2018-01-02 07:01] LABS: ALANINE AMINOTRANSFERASE 14 Units/L (12-78); ALBUMIN 1.6 g/dL (3.4-5.0); ALKALINE PHOSPHATASE 83 Units/L (46-116); ASPARTATE AMINO TRANSFERASE 14 Units/L (15-37); BLOOD UREA NITROGEN 20 mg/dL (7-18); CARBON DIOXIDE 19.4 mmol/L (21-32); CHLORIDE 107 mmol/L (98-107); COR CA(FOR HYPOALB) 9.9 mg/dL (8.5-10.1); COR NA(FOR HYPERGLY) 138 mmol/L (136-145); SODIUM 137 mmol/L (136-145); TOTAL PROTEIN 5.1 g/dL (6.4-8.2); eGFR NON BLACK RACES 56 (>60)
[2018-01-02] MEDS: CARDIZEM TAB 30 MG PLAIN PO SCH ×2 (08:51→21:00)
[2018-01-02] MEDS: EFFEXOR XR 37.5 MG CAP PO SCH (08:51)
[2018-01-02] MEDS: TAMBOCOR PO SCH ×2 (08:52→21:00)
[2018-01-02] MEDS: PEPCID 20 MG IV PREMIX* 20 MG/50 ML BAG IV SCH ×2 (08:52→21:00)
[2018-01-02] MEDS: PROTONIX INJ 40 MG VIAL IVP SCH ×2 (08:52→21:00)
[2018-01-02] MEDS: ALBUMIN HUMAN 25%- 100 ML 100 ML IV SCH (09:46)
[2018-01-02] MEDS: VITAMIN D3 PO SCH (09:46)
[2018-01-02] MEDS ORDERED: LR 1000 ML IV 1,000 ML IV ONE (12:21)
[2018-01-02] MEDS ORDERED: DIPRIVAN VIAL 20 ML ONE (12:29)
[2018-01-02] MEDS: ULTRAM PO PRN (13:47)
[2018-01-02] MEDS: SYNTHROID 25 mcg TAB PO SCH (16:24)
--- NOTE | 2018-01-02 19:39 | PCM.PROG ---
Progress Note - Progress Note for Day of Date of Exam: 01/01/18 - Subjective Subjective: WAS ADMITTED FOR ANEMIA. SHE WAS TRANSFUSED WITH TWO UNITS OF PACKED RED BLOOD CELLS THROUGHOUT THE NIGHT FOR A HGB OF 6.7, HCT 19.6. TODAY, SHE IS ALERT AND ORIENTED, LYING IN BED ON MORNING ROUNDS. SHE CONTINUES WITH COMPLAINTS OF GENERALIZED WEAKNESS. ON EXAMINATION, HEART IS REGULAR IN RATE AND RHYTHM. BILATERAL LUNGS ARE NOTED WITH DIMINISHED LUNG SOUNDS THROUGHOUT. ABDOMEN IS ROUND, SOFT, AND NON-TENDER WITH NORMAL BOWEL SOUNDS NOTED IN ALL QUADRANTS. HER VITALS TODAY ARE 98.6-84-17-99%-144/64. LABS WERE OBTAINED. ABNORMAL LAB VALUES INCLUDE THE FOLLOWING: RBC 2.49, HGB 8.7, HCT 24.6, BUN 24, CREATININE 1.13, GLUCOSE 103, CALCIUM 8.2, TOTAL PROTEIN 5.2, ALBUMIN 1.6, VITAMIN B12 >2000, FOLATE 4.1. STOOLS ARE POSITIVE FOR OCCULT BLOOD. TODAY, WE WILL HAVE GASTROENTEROLOGY CONSULT WITH PATIENT. OTHERWISE, WE WILL PEPCID, PROTONIX, AND IV FLUIDS. OTHERWISE, WE WILL CONTINUE TO MONITOR H& H AND FOLLOW UP WITH AM LABS. - Past Medical Family Social History Past Med/Fam/Surg Hx: No changes since H&P Allergies: Allergies ciprofloxacin Allergy (Verified 02/19/17 19:46) metronidazole Allergy (Verified 02/19/17 19:46) - Review of Systems ROS: No change since H&P - Vital Signs and I&O's Vital Signs: Temperature 99.2 F Pulse Rate [Left Brachial] 88 Respiratory Rate 21 Blood Pressure [Left Arm] 161/67 Blood Pressure [Right Arm] 138/65 Blood Pressure 144/63 O2 Sat by Pulse Oximetry 98 Intake and Output: Intake & Output 12/31/17 01/01/18 01/02/18 01/03/18 11:59 11:59 11:59 11:59 Intake Total 1275 / 1275 4013 / 4013 1038 / 1038 Output Total 3175 / 3175 350 / 350 1100 / 1100 Balance -1900 / -1900 3663 / 3663 -62 / -62 - Physical Exam Oriented: Normal Eyes: Normal Ear: Normal Nose: Normal Throat: Normal Respiratory: Generalized, Diminished Cardiovascular: Normal : Normal Auscultation: Bowel Sounds: Normal Palpation: Normal Tenderness: Normal Skin: Normal Musculoskeletal: Normal Psychiatric: Normal Mood Description: Calm Affect: Normal Speech Pattern: Clear, Appropriate - Laboratory and Diagnostics Result Diagrams: 01/02/18 06:41 01/02/18 16:39 Labs: Laboratory WBC 8.5 X10^3/uL (3.6-10.0) 01/02/18 06:41 RBC 2.40 X10^6/uL (3.5-5.4) L 01/02/18 06:41 Hgb 8.4 g/dL (12.0-16.0) L 01/02/18 06:41 Hct 23.7 % (36.0-47.0) L 01/02/18 06:41 MCV 98.7 fL (80.0-100.0) 01/02/18 06:41 MCH 34.9 pg (27.0-34.0) H 01/02/18 06:41 MCHC 35.3 g/dL (33.0-35.0) H 01/02/18 06:41 RDW 19.4 % (11.6-16.5) H 01/02/18 06:41 Plt Count 362 X10^3/uL (150.0-450.0) 01/02/18 06:41 Plt Count Comment Adequate (ADEQUATE) 01/01/18 08:48 MPV 6.8 fL (7.4-11.0) L 01/02/18 06:41 Neut % (Auto) 79.2 % (42.0-75.0) H 01/02/18 06:41 Lymph % (Auto) 14.5 % (21.0-51.0) L 01/02/18 06:41 [place] % (Auto) 5.4 % (0.0-13.0) 01/02/18 06:41 Eos % (Auto) 0.2 % (0.9-2.9) L 01/02/18 06:41 Baso % (Auto) 0.7 % (0.2-1.0) 01/02/18 06:41 Neut # (Auto) 6.7 x10^3/uL (2.2-4.8) H 01/02/18 06:41 Lymph # (Auto) 1.2 X10^3/uL (1.3-2.9) L 01/02/18 06:41 [place] # (Auto) 0.5 x10^3/uL (0.3-0.8) 01/02/18 06:41 Eos # (Auto) 0.0 x10^3/uL (0.0-0.2) 01/02/18 06:41 Baso # (Auto) 0.1 X10^3/uL (0.0-0.1) 01/02/18 06:41 Absolute Nucleated RBC 0.0 /100WBC 01/02/18 06:41 Total Counted 100 01/01/18 08:48 Neutrophils % (Manual) 69 % (39-76) 01/01/18 08:48 Band Neutrophils % 2 % (0-10) 01/01/18 08:48 Lymphocytes % (Manual) 25 % (13-43) 01/01/18 08:48 Monocytes % (Manual) 4 % (4-9) 01/01/18 08:48 Plt Morphology Comment Normal (NORMAL) 01/01/18 08:48 RBC Morphology Abnormal (NORMAL) A 01/01/18 08:48 Dimorphic RBCs Noted 01/01/18 08:48 Hypochromasia 1+ A 01/01/18 08:48 Anisocytosis 2+ A 01/01/18 08:48 Macrocytosis 1+ A 12/31/17 18:05 Sodium 137 mmol/L (136-145) 01/02/18 06:41 Corrected Sodium 138 mmol/L (136-145) 01/02/18 06:41 Potassium 3.4 mmol/L (3.5-5.1) L 01/02/18 16:39 Chloride 107 mmol/L (98-107) 01/02/18 06:41 Carbon Dioxide 19.4 mmol/L (21-32) L 01/02/18 06:41 BUN 20 mg/dL (7-18) H 01/02/18 06:41 Creatinine 1.00 mg/dL (0.55-1.02) 01/02/18 06:41 Est GFR (MDRD) Af Amer > 60 (>60) 01/02/18 06:41 Est GFR (MDRD) Non-Af 56 (>60) L 01/02/18 06:41 Glucose 125 mg/dL (65-99) H 01/02/18 06:41 Lactic Acid 2.5 mmol/L (0.4-2.0) H 12/31/17 18:05 Calcium 8.0 mg/dL (8.5-10.1) L 01/02/18 06:41 Corrected Calcium 9.9 mg/dL (8.5-10.1) 01/02/18 06:41 Magnesium 1.9 mg/dL (1.7-2.9) 01/01/18 08:08 Iron 36 ug/dL (50-175) L 01/01/18 08:08 Total Bilirubin 0.20 mg/dL (0.2-1.0) 01/02/18 06:41 AST 14 Units/L (15-37) L 01/02/18 06:41 ALT 14 Units/L (12-78) 01/02/18 06:41 Alkaline Phosphatase 83 Units/L (46-116) 01/02/18 06:41 Total Protein 5.1 g/dL (6.4-8.2) L 01/02/18 06:41 Albumin 1.6 g/dL (3.4-5.0) L 01/02/18 06:41 Globulin 3.5 g/dL (2.5-4.5) 01/02/18 06:41 Albumin/Globulin Ratio 0.5 Ratio (1.1-2.1) L 01/02/18 06:41 Vitamin B12 > 2000 pg/mL (193-986) H 01/01/18 08:08 Folate 4.1 ng/mL (>8.6) L 01/01/18 08:08 Specimen Type Catherized urine 12/31/17 20:40 Urine Color Yellow (YELLOW) 12/31/17 20:40 Urine Appearance Clear (CLEAR) 12/31/17 20:40 Urine pH 5.0 (5.0 - 8.0) 12/31/17 20:40 Ur Specific [place] 1.020 (1.000-1.030) 12/31/17 20:40 Urine Protein 2+ (NEGATIVE) 12/31/17 20:40 Urine Glucose (UA) Negative (NEGATIVE) 12/31/17 20:40 Urine Ketones Negative (NEGATIVE) 12/31/17 20:40 Urine Occult Blood 2+ (NEGATIVE) 12/31/17 20:40 Urine Nitrite Negative (NEGATIVE) 12/31/17 20:40 Urine Bilirubin Negative (NEGATIVE) 12/31/17 20:40 Urine Urobilinogen Normal (NORMAL) 12/31/17 20:40 Ur Leukocyte Esterase Negative (NEGATIVE) 12/31/17 20:40 Urine RBC 0-2 /HPF (NONE SEEN) 12/31/17 20:40 Urine WBC None seen /HPF (NONE SEEN) 12/31/17 20:40 Ur Squamous Epith Cells Rare /HPF (NEGATIVE) 12/31/17 20:40 Amorphous Sediment Trace /HPF (NEGATIVE) 12/31/17 20:40 Urine Bacteria Negative /HPF (NEGATIVE) 12/31/17 20:40 Ur Culture Indicated? No/not indicated 12/31/17 20:40 Stool Description Fob tube 01/01/18 16:57 Stl Occult Blood (IFOB) Positive (NEGATIVE) A 01/01/18 16:57 Stl C. diff Tox B Gene Negative (NEGATIVE) 01/02/18 13:12 Stl C. diff [id number] Negative (NEGATIVE) 01/02/18 13:12 Tissue Pathology To follow 01/02/18 13:12 Blood Type A POSITIVE 12/31/17 18:05 Antibody Screen Negative 12/31/17 18:05 Crossmatch See Detail 12/31/17 18:05 - Plan (1) Anemia Status: Acute Qualifiers: Anemia type: iron deficiency Iron deficiency anemia type: chronic blood loss Qualified Code(s): D50.0 - Iron deficiency anemia secondary to blood loss (chronic) Plan: MONITOR H&H, CONTINUE PEPCID, PROTONIX (2) Generalized weakness Status: Acute (3) Dehydration Status: Acute Plan: NORMAL SALINE AT 50ML/HR, CONTINUE TO MONITOR
--- NOTE | 2018-01-02 19:46 | PCM.PROG ---
Progress Note - Progress Note for Day of Date of Exam: 01/02/18 - Subjective Subjective: WAS ADMITTED FOR ANEMIA. SHE RECEIVED TWO UNITS OF PACKED RED BLOOD CELLS ON ADMISSION. HER HEMOGLOBIN HAS SINCE REMAINED STABLE. TODAY, SHE IS ALERT AND ORIENTED, LYING IN BED ON MORNING ROUNDS. SHE CONTINUES WITH COMPLAINTS OF GENERALIZED WEAKNESS. ON EXAMINATION, HEART IS REGULAR IN RATE AND RHYTHM. BILATERAL LUNGS CONTINUE WITH DIMINISHED LUNG SOUNDS THROUGHOUT. ABDOMEN IS ROUND, SOFT, AND NOTED WITH MILD LLQ TENDERNESS TO PALPATION. NORMAL BOWEL SOUNDS ARE NOTED IN ALL QUADRANTS. HER VITALS TODAY ARE 98.5-100-18-98%NC-141/65. LABS WERE OBTAINED. ABNORMAL LAB VALUES INCLUDE THE FOLLOWING: RBC 2.40, HGB 8.4, HCT 23.7, POTASSIUM 2.7, CARBON DIOXIDE 19.4, BUN 20, GLUCOSE 125, CALCIUM 8.0, AST 14, TOTAL PROTEIN 5.1, ALBUMIN 1.6. GASTROENTEROLOGY CONSULTED WITH PATIENT YESTERDAY AND PLAN FOR A COLONOSCOPY TODAY. OTHERWISE, WE WILL PEPCID, PROTONIX, AND IV FLUIDS. WE WILL ALSO START ALBUMIN 25% IV DAILY. OTHERWISE, WE WILL CONTINUE TO MONITOR H&H AND FOLLOW UP WITH AM LABS. - Past Medical Family Social History Past Med/Fam/Surg Hx: No changes since H&P Allergies: Allergies ciprofloxacin Allergy (Verified 02/19/17 19:46) metronidazole Allergy (Verified 02/19/17 19:46) - Review of Systems ROS: No change since H&P - Vital Signs and I&O's Vital Signs: Temperature 99.2 F Pulse Rate [Left Brachial] 88 Respiratory Rate 21 Blood Pressure [Left Arm] 161/67 Blood Pressure [Right Arm] 138/65 Blood Pressure 144/63 O2 Sat by Pulse Oximetry 98 Intake and Output: Intake & Output 12/31/17 01/01/18 01/02/18 01/03/18 11:59 11:59 11:59 11:59 Intake Total 1275 / 1275 4013 / 4013 1038 / 1038 Output Total 3175 / 3175 350 / 350 1100 / 1100 Balance -1900 / -1900 3663 / 3663 -62 / -62 - Physical Exam Oriented: Normal Eyes: Normal Ear: Normal Nose: Normal Throat: Normal Respiratory: Generalized, Diminished Cardiovascular: Normal : Normal Auscultation: Bowel Sounds: Normal Palpation: Normal Tenderness: LLQ Skin: Normal Musculoskeletal: Normal Psychiatric: Normal Mood Description: Calm Affect: Normal Speech Pattern: Clear, Appropriate - Laboratory and Diagnostics Result Diagrams: 01/02/18 06:41 01/02/18 16:39 Labs: Laboratory WBC 8.5 X10^3/uL (3.6-10.0) 01/02/18 06:41 RBC 2.40 X10^6/uL (3.5-5.4) L 01/02/18 06:41 Hgb 8.4 g/dL (12.0-16.0) L 01/02/18 06:41 Hct 23.7 % (36.0-47.0) L 01/02/18 06:41 MCV 98.7 fL (80.0-100.0) 01/02/18 06:41 MCH 34.9 pg (27.0-34.0) H 01/02/18 06:41 MCHC 35.3 g/dL (33.0-35.0) H 01/02/18 06:41 RDW 19.4 % (11.6-16.5) H 01/02/18 06:41 Plt Count 362 X10^3/uL (150.0-450.0) 01/02/18 06:41 Plt Count Comment Adequate (ADEQUATE) 01/01/18 08:48 MPV 6.8 fL (7.4-11.0) L 01/02/18 06:41 Neut % (Auto) 79.2 % (42.0-75.0) H 01/02/18 06:41 Lymph % (Auto) 14.5 % (21.0-51.0) L 01/02/18 06:41 [place] % (Auto) 5.4 % (0.0-13.0) 01/02/18 06:41 Eos % (Auto) 0.2 % (0.9-2.9) L 01/02/18 06:41 Baso % (Auto) 0.7 % (0.2-1.0) 01/02/18 06:41 Neut # (Auto) 6.7 x10^3/uL (2.2-4.8) H 01/02/18 06:41 Lymph # (Auto) 1.2 X10^3/uL (1.3-2.9) L 01/02/18 06:41 [place] # (Auto) 0.5 x10^3/uL (0.3-0.8) 01/02/18 06:41 Eos # (Auto) 0.0 x10^3/uL (0.0-0.2) 01/02/18 06:41 Baso # (Auto) 0.1 X10^3/uL (0.0-0.1) 01/02/18 06:41 Absolute Nucleated RBC 0.0 /100WBC 01/02/18 06:41 Total Counted 100 01/01/18 08:48 Neutrophils % (Manual) 69 % (39-76) 01/01/18 08:48 Band Neutrophils % 2 % (0-10) 01/01/18 08:48 Lymphocytes % (Manual) 25 % (13-43) 01/01/18 08:48 Monocytes % (Manual) 4 % (4-9) 01/01/18 08:48 Plt Morphology Comment Normal (NORMAL) 01/01/18 08:48 RBC Morphology Abnormal (NORMAL) A 01/01/18 08:48 Dimorphic RBCs Noted 01/01/18 08:48 Hypochromasia 1+ A 01/01/18 08:48 Anisocytosis 2+ A 01/01/18 08:48 Macrocytosis 1+ A 12/31/17 18:05 Sodium 137 mmol/L (136-145) 01/02/18 06:41 Corrected Sodium 138 mmol/L (136-145) 01/02/18 06:41 Potassium 3.4 mmol/L (3.5-5.1) L 01/02/18 16:39 Chloride 107 mmol/L (98-107) 01/02/18 06:41 Carbon Dioxide 19.4 mmol/L (21-32) L 01/02/18 06:41 BUN 20 mg/dL (7-18) H 01/02/18 06:41 Creatinine 1.00 mg/dL (0.55-1.02) 01/02/18 06:41 Est GFR (MDRD) Af Amer > 60 (>60) 01/02/18 06:41 Est GFR (MDRD) Non-Af 56 (>60) L 01/02/18 06:41 Glucose 125 mg/dL (65-99) H 01/02/18 06:41 Lactic Acid 2.5 mmol/L (0.4-2.0) H 12/31/17 18:05 Calcium 8.0 mg/dL (8.5-10.1) L 01/02/18 06:41 Corrected Calcium 9.9 mg/dL (8.5-10.1) 01/02/18 06:41 Magnesium 1.9 mg/dL (1.7-2.9) 01/01/18 08:08 Iron 36 ug/dL (50-175) L 01/01/18 08:08 Total Bilirubin 0.20 mg/dL (0.2-1.0) 01/02/18 06:41 AST 14 Units/L (15-37) L 01/02/18 06:41 ALT 14 Units/L (12-78) 01/02/18 06:41 Alkaline Phosphatase 83 Units/L (46-116) 01/02/18 06:41 Total Protein 5.1 g/dL (6.4-8.2) L 01/02/18 06:41 Albumin 1.6 g/dL (3.4-5.0) L 01/02/18 06:41 Globulin 3.5 g/dL (2.5-4.5) 01/02/18 06:41 Albumin/Globulin Ratio 0.5 Ratio (1.1-2.1) L 01/02/18 06:41 Vitamin B12 > 2000 pg/mL (193-986) H 01/01/18 08:08 Folate 4.1 ng/mL (>8.6) L 01/01/18 08:08 Specimen Type Catherized urine 12/31/17 20:40 Urine Color Yellow (YELLOW) 12/31/17 20:40 Urine Appearance Clear (CLEAR) 12/31/17 20:40 Urine pH 5.0 (5.0 - 8.0) 12/31/17 20:40 Ur Specific [place] 1.020 (1.000-1.030) 12/31/17 20:40 Urine Protein 2+ (NEGATIVE) 12/31/17 20:40 Urine Glucose (UA) Negative (NEGATIVE) 12/31/17 20:40 Urine Ketones Negative (NEGATIVE) 12/31/17 20:40 Urine Occult Blood 2+ (NEGATIVE) 12/31/17 20:40 Urine Nitrite Negative (NEGATIVE) 12/31/17 20:40 Urine Bilirubin Negative (NEGATIVE) 12/31/17 20:40 Urine Urobilinogen Normal (NORMAL) 12/31/17 20:40 Ur Leukocyte Esterase Negative (NEGATIVE) 12/31/17 20:40 Urine RBC 0-2 /HPF (NONE SEEN) 12/31/17 20:40 Urine WBC None seen /HPF (NONE SEEN) 12/31/17 20:40 Ur Squamous Epith Cells Rare /HPF (NEGATIVE) 12/31/17 20:40 Amorphous Sediment Trace /HPF (NEGATIVE) 12/31/17 20:40 Urine Bacteria Negative /HPF (NEGATIVE) 12/31/17 20:40 Ur Culture Indicated? No/not indicated 12/31/17 20:40 Stool Description Fob tube 01/01/18 16:57 Stl Occult Blood (IFOB) Positive (NEGATIVE) A 01/01/18 16:57 Stl C. diff Tox B Gene Negative (NEGATIVE) 01/02/18 13:12 Stl C. diff [id number] Negative (NEGATIVE) 01/02/18 13:12 Tissue Pathology To follow 01/02/18 13:12 Blood Type A POSITIVE 12/31/17 18:05 Antibody Screen Negative 12/31/17 18:05 Crossmatch See Detail 12/31/17 18:05 - Plan (1) Anemia Status: Acute Qualifiers: Anemia type: iron deficiency Iron deficiency anemia type: chronic blood loss Qualified Code(s): D50.0 - Iron deficiency anemia secondary to blood loss (chronic) Plan: MONITOR H&H, CONTINUE PEPCID, PROTONIX (2) Generalized weakness Status: Acute (3) Dehydration Status: Acute Plan: NORMAL SALINE AT 50ML/HR, CONTINUE TO MONITOR (4) Hypoalbuminemia Status: Acute Plan: ALBUMIN 25% IV DAILY, CONTINUE TO MONITOR
[2018-01-02] MEDS: DESYREL PO SCH (21:00)
[2018-01-02] MEDS: SINGULAIR TAB 10 MG PO SCH (21:00)
[2018-01-02] MEDS: REQUIP PO SCH (21:01)
[2018-01-02] MEDS: MAGNESIUM SULFATE 1 GRAM/100 mL PREMIX 1 GM/100 ML BAG IV PRN ×2 (21:01→23:08)
[2018-01-03] MEDS: NS 1000 ML 1,000 ML IV SCH (06:12)
[2018-01-03 06:36] LABS: BASOPHILS % (AUTO) 0.6 % (0.2-1.0); EOSINOPHILS % (AUTO) 0.5 % (0.9-2.9); LYMPHOCYTES # (AUTO) 1.4 X10^3/uL (1.3-2.9); MEAN CORPUSCULAR HEMOGLOBIN 35.7 pg (27.0-34.0); MONOCYTES # (AUTO) 0.5 x10^3/uL (0.3-0.8); MONOCYTES % (AUTO) 6.8 % (0.0-13.0); NEUTROPHILS # (AUTO) 5.9 x10^3/uL (2.2-4.8); NEUTROPHILS % (AUTO) 74.1 % (42.0-75.0); PLATELET COUNT 306 X10^3/uL (150.0-450.0); RED BLOOD COUNT 1.95 X10^6/uL (3.5-5.4); RED CELL DISTRIBUTION WIDTH 19.3 % (11.6-16.5)
[2018-01-03 06:39] LABS: HEMOGLOBIN 6.9 g/dL (12.0-16.0)
[2018-01-03 06:40] LABS: HEMATOCRIT 19.3 % (36.0-47.0)
[2018-01-03 06:48] LABS: LACTIC ACID 0.3 mmol/L (0.4-2.0)
[2018-01-03 06:56] LABS: ALANINE AMINOTRANSFERASE 12 Units/L (12-78); ALBUMIN 1.7 g/dL (3.4-5.0); ALKALINE PHOSPHATASE 71 Units/L (46-116); ASPARTATE AMINO TRANSFERASE 11 Units/L (15-37); BLOOD UREA NITROGEN 13 mg/dL (7-18); CALCIUM 7.7 mg/dL (8.5-10.1); CARBON DIOXIDE 20.5 mmol/L (21-32); CHLORIDE 106 mmol/L (98-107); COR CA(FOR HYPOALB) 9.5 mg/dL (8.5-10.1); CREATININE 0.82 mg/dL (0.55-1.02); SODIUM 135 mmol/L (136-145); TOTAL PROTEIN 4.8 g/dL (6.4-8.2); eGFR NON BLACK RACES > 60 (>60)
[2018-01-03 07:01] LABS: BAND NEUTROPHILS % 2 % (0-10)
[2018-01-03 07:02] LABS: ANISOCYTOSIS 2+; HYPOCHROMASIA 2+; PLATELET MORPHOLOGY COMMENT NORMAL (NORMAL)
[2018-01-03] MEDS ORDERED: LASIX IVP ONE (09:21)
[2018-01-03] MEDS: PROTONIX INJ 40 MG VIAL IVP SCH ×2 (09:28→20:16)
[2018-01-03] MEDS: EFFEXOR XR 37.5 MG CAP PO SCH (09:28)
[2018-01-03] MEDS: VITAMIN D3 PO SCH (09:29)
[2018-01-03] MEDS: CARDIZEM TAB 30 MG PLAIN PO SCH ×2 (09:29→20:15)
[2018-01-03] MEDS: TAMBOCOR PO SCH ×2 (09:29→20:45)
[2018-01-03] MEDS: PEPCID 20 MG IV PREMIX* 20 MG/50 ML BAG IV SCH ×2 (09:29→20:15)
[2018-01-03] MEDS: ALBUMIN HUMAN 25%- 100 ML 100 ML IV SCH (09:30)
[2018-01-03] MEDS: TobraDEX OPHTH SUSP EACHEYE SCH ×2 (09:57→20:16)
[2018-01-03] MEDS: NS + KCL 40 MEQ/L 1,000 ML IV SCH (09:57)
[2018-01-03] MEDS ORDERED: ZANTAC PO SCH (10:00)
[2018-01-03] MEDS ORDERED: BENADRYL INJ 50 MG VIAL IVP ONE (10:09)
[2018-01-03] MEDS: TYLENOL 325 MG TAB PO PRN (10:22)
[2018-01-03] MEDS: HYDREA PO SCH (14:55)
[2018-01-03] MEDS: SYNTHROID 25 mcg TAB PO SCH (16:08)
[2018-01-03] MEDS: DESYREL PO SCH (20:15)
[2018-01-03] MEDS: SINGULAIR TAB 10 MG PO SCH (20:16)
[2018-01-03] MEDS: REQUIP PO SCH (20:16)
[2018-01-03] MEDS ORDERED: STERILE WATER IRRIGATION IR ONE (20:47)
[2018-01-03 21:15] LABS: HEMATOCRIT 26.2 % (36.0-47.0); HEMOGLOBIN 9.2 g/dL (12.0-16.0)
[2018-01-04] MEDS: TYLENOL 325 MG TAB PO PRN (03:25)
[2018-01-04 06:48] LABS: BASOPHILS % (AUTO) 0.5 % (0.2-1.0); EOSINOPHILS % (AUTO) 0.3 % (0.9-2.9); HEMATOCRIT 24.3 % (36.0-47.0); HEMOGLOBIN 8.6 g/dL (12.0-16.0); LYMPHOCYTES # (AUTO) 1.4 X10^3/uL (1.3-2.9); LYMPHOCYTES % (AUTO) 17.4 % (21.0-51.0); MEAN CORPUSCULAR HEMOGLOBIN 33.4 pg (27.0-34.0); MEAN CORPUSCULAR HGB CONC 35.4 g/dL (33.0-35.0); MEAN CORPUSCULAR VOLUME 94.3 fL (80.0-100.0); MEAN PLATELET VOLUME 6.9 fL (7.4-11.0); MONOCYTES # (AUTO) 0.5 x10^3/uL (0.3-0.8); MONOCYTES % (AUTO) 5.7 % (0.0-13.0); NEUTROPHILS # (AUTO) 6.1 x10^3/uL (2.2-4.8); NEUTROPHILS % (AUTO) 76.1 % (42.0-75.0); PLATELET COUNT 276 X10^3/uL (150.0-450.0); RED BLOOD COUNT 2.58 X10^6/uL (3.5-5.4); RED CELL DISTRIBUTION WIDTH 19.5 % (11.6-16.5)
[2018-01-04 07:02] LABS: ALANINE AMINOTRANSFERASE 11 Units/L (12-78); ALKALINE PHOSPHATASE 72 Units/L (46-116); ASPARTATE AMINO TRANSFERASE 12 Units/L (15-37); BLOOD UREA NITROGEN 17 mg/dL (7-18); CALCIUM 7.9 mg/dL (8.5-10.1); CARBON DIOXIDE 20.3 mmol/L (21-32); CHLORIDE 108 mmol/L (98-107); COR CA(FOR HYPOALB) 9.5 mg/dL (8.5-10.1); CREATININE 0.92 mg/dL (0.55-1.02); SODIUM 138 mmol/L (136-145); TOTAL PROTEIN 5.1 g/dL (6.4-8.2); eGFR NON BLACK RACES > 60 (>60)
[2018-01-04] MEDS: PEPCID 20 MG IV PREMIX* 20 MG/50 ML BAG IV SCH ×2 (09:50→21:18)
[2018-01-04] MEDS: TAMBOCOR PO SCH ×2 (09:51→21:18)
[2018-01-04] MEDS: CARDIZEM TAB 30 MG PLAIN PO SCH ×2 (09:51→21:18)
[2018-01-04] MEDS: VITAMIN D3 PO SCH (09:51)
[2018-01-04] MEDS: PROTONIX INJ 40 MG VIAL IVP SCH ×2 (09:52→21:18)
[2018-01-04] MEDS: TobraDEX OPHTH SUSP EACHEYE SCH ×2 (09:52→21:19)
[2018-01-04] MEDS: EFFEXOR XR 37.5 MG CAP PO SCH (09:52)
[2018-01-04] MEDS: ALBUMIN HUMAN 25%- 100 ML 100 ML IV SCH (10:37)
[2018-01-04] MEDS: SYNTHROID 25 mcg TAB PO SCH (16:50)
[2018-01-04] MEDS: NS + KCL 40 MEQ/L 1,000 ML IV SCH (16:50)
[2018-01-04] MEDS: REQUIP PO SCH (21:18)
[2018-01-04] MEDS: DESYREL PO SCH (21:18)
[2018-01-04] MEDS: SINGULAIR TAB 10 MG PO SCH (21:18)
[2018-01-05] MEDS: ULTRAM PO PRN (00:25)
[2018-01-05] MEDS: TYLENOL 325 MG TAB PO PRN ×3 (02:31→23:43)
[2018-01-05] MEDS: NS + KCL 40 MEQ/L 1,000 ML IV SCH ×2 (04:44→16:19)
[2018-01-05 05:25] LABS: BASOPHILS % (AUTO) 0.8 % (0.2-1.0); EOSINOPHILS % (AUTO) 0.4 % (0.9-2.9); HEMATOCRIT 23.5 % (36.0-47.0); HEMOGLOBIN 8.4 g/dL (12.0-16.0); LYMPHOCYTES # (AUTO) 1.2 X10^3/uL (1.3-2.9); LYMPHOCYTES % (AUTO) 22.5 % (21.0-51.0); MEAN CORPUSCULAR HEMOGLOBIN 33.9 pg (27.0-34.0); MEAN CORPUSCULAR HGB CONC 35.8 g/dL (33.0-35.0); MEAN CORPUSCULAR VOLUME 94.6 fL (80.0-100.0); MEAN PLATELET VOLUME 7.3 fL (7.4-11.0); MONOCYTES # (AUTO) 0.4 x10^3/uL (0.3-0.8); MONOCYTES % (AUTO) 7.3 % (0.0-13.0); NEUTROPHILS # (AUTO) 3.8 x10^3/uL (2.2-4.8); PLATELET COUNT 259 X10^3/uL (150.0-450.0); RED BLOOD COUNT 2.49 X10^6/uL (3.5-5.4); RED CELL DISTRIBUTION WIDTH 19.3 % (11.6-16.5); WHITE BLOOD COUNT 5.6 X10^3/uL (3.6-10.0)
[2018-01-05 05:52] LABS: ALANINE AMINOTRANSFERASE 11 Units/L (12-78); ALBUMIN 2.2 g/dL (3.4-5.0); ALKALINE PHOSPHATASE 70 Units/L (46-116); ASPARTATE AMINO TRANSFERASE 10 Units/L (15-37); BLOOD UREA NITROGEN 13 mg/dL (7-18); CALCIUM 7.8 mg/dL (8.5-10.1); CARBON DIOXIDE 19.8 mmol/L (21-32); CHLORIDE 107 mmol/L (98-107); COR CA(FOR HYPOALB) 9.2 mg/dL (8.5-10.1); COR NA(FOR HYPERGLY) 138 mmol/L (136-145); CREATININE 0.85 mg/dL (0.55-1.02); SODIUM 138 mmol/L (136-145); TOTAL PROTEIN 5.1 g/dL (6.4-8.2); eGFR NON BLACK RACES > 60 (>60)
[2018-01-05 06:19] LABS: BAND NEUTROPHILS % 6 % (0-10); PLATELET MORPHOLOGY COMMENT NORMAL (NORMAL)
[2018-01-05 06:20] LABS: ANISOCYTOSIS SLIGHT; HYPOCHROMASIA 1+
[2018-01-05] MEDS: CARDIZEM TAB 30 MG PLAIN PO SCH ×2 (09:15→20:42)
[2018-01-05] MEDS: TAMBOCOR PO SCH ×2 (09:15→20:43)
[2018-01-05] MEDS: EFFEXOR XR 37.5 MG CAP PO SCH (09:15)
[2018-01-05] MEDS: VITAMIN D3 PO SCH (09:15)
[2018-01-05] MEDS: PEPCID 20 MG IV PREMIX* 20 MG/50 ML BAG IV SCH ×2 (09:15→20:43)
[2018-01-05] MEDS: PROTONIX INJ 40 MG VIAL IVP SCH ×2 (09:16→20:43)
[2018-01-05] MEDS: TobraDEX OPHTH SUSP EACHEYE SCH ×2 (09:19→20:43)
[2018-01-05] MEDS: ALBUMIN HUMAN 25%- 100 ML 100 ML IV SCH (09:55)
[2018-01-05] MEDS: POTASSIUM CHL 40 MEQ/NS 0.45% 500 ML IV PRN (14:06)
--- NOTE | 2018-01-05 15:23 | PCM.PROG ---
Progress Note - Progress Note for Day of Date of Exam: 01/03/18 - Subjective Subjective: WAS ADMITTED FOR ANEMIA. SHE RECEIVED TWO UNITS OF PACKED RED BLOOD CELLS ON ADMISSION. TODAY, SHE IS ALERT AND ORIENTED, LYING IN BED ON MORNING ROUNDS. SHE CONTINUES WITH COMPLAINTS OF GENERALIZED WEAKNESS WELL ITCHING TO BOTH EYES. ON EXAMINATION, BILATERAL EYES ARE NOTED WITH REDNESS. HEART IS REGULAR IN RATE AND RHYTHM. BILATERAL LUNGS CONTINUE WITH DIMINISHED LUNG SOUNDS THROUGHOUT. ABDOMEN IS ROUND, SOFT, AND NOTED WITH MILD LLQ TENDERNESS TO PALPATION. NORMAL BOWEL SOUNDS ARE NOTED IN ALL QUADRANTS. HER VITALS TODAY ARE 98.1-85-19-98%-144/64. LABS WERE OBTAINED. ABNORMAL LAB VALUES INCLUDE THE FOLLOWING: RBC 1.95, hgb 6.9, hct 19.3, sodium 135, potassium 3.2, carbon dioxide 20.5, glucose 110, calcium 7.7, ast 11, total protein 4.8, albumin 1.7. PATIENT HAD A COLONOSCOPY YESTERDAY. POSTENDOSCOPY DIAGNOSIS INCLUDES: Extensive ulcerations involving the descending colon area, splenic flexure and most of the transverse colon. Some ulcerations are present, scattered in the ascending with normal skip areas. Sigmoid diverticulosis with a couple of very small superficial ulcers in the sigmoid colon area. The rectum is normal. Internal hemorrhoids. TODAY, WE WILL TRANSFUSE TWO UNITS OF PACKED RED BLOOD CELLS WITH LASIX 20MG IV IN BETWEEN UNITS OF BLOOD. WE WILL ALSO START TOBRADEX EYE DROPS TWICE A DAY TO BOTH EYES. WE WILL CONTINUE PEPCID, PROTONIX, AND IV FLUIDS. WE WILL MONITOR H&H TWICE A DAY. OTHERWISE, WE WILL FOLLOW UP WITH AM LABS AND CONTINUE TO MONITOR PATIENT. - Past Medical Family Social History Past Med/Fam/Surg Hx: No changes since H&P Allergies: Allergies ciprofloxacin Allergy (Verified 02/19/17 19:46) metronidazole Allergy (Verified 02/19/17 19:46) - Review of Systems ROS: No change since H&P - Vital Signs and I&O's Vital Signs: Temperature 98.7 F Pulse Rate [Left Brachial] 94 Respiratory Rate 24 Blood Pressure [Left Arm] 173/75 Blood Pressure [Right Arm] 138/65 Blood Pressure 144/63 O2 Sat by Pulse Oximetry 93 Intake and Output: Intake & Output 01/03/18 01/04/18 01/05/18 01/06/18 11:59 11:59 11:59 11:59 Intake Total 2017 2235 / 2235 2865 / 2865 Output Total 1750 / 1750 2450 / 2450 3000 / 3000 Balance 268 / 268 -215 / -215 -135 / -135 - Physical Exam Oriented: Normal Eyes: Normal Ear: Normal Nose: Normal Throat: Normal Respiratory: Generalized, Diminished Cardiovascular: Normal : Normal Auscultation: Bowel Sounds: Normal Palpation: Normal Tenderness: LLQ Skin: Normal Musculoskeletal: Normal Psychiatric: Normal Mood Description: Calm Affect: Normal Speech Pattern: Clear, Appropriate - Laboratory and Diagnostics Result Diagrams: 01/05/18 04:25 01/05/18 04:25 Labs: 01/01/18 08:21 Blood Blood Culture - Preliminary 01/01/18 08:08 Blood Blood Culture - Preliminary Laboratory WBC 5.6 X10^3/uL (3.6-10.0) 01/05/18 04:25 RBC 2.49 X10^6/uL (3.5-5.4) L 01/05/18 04:25 Hgb 8.4 g/dL (12.0-16.0) L 01/05/18 04:25 Hct 23.5 % (36.0-47.0) L 01/05/18 04:25 MCV 94.6 fL (80.0-100.0) 01/05/18 04:25 MCH 33.9 pg (27.0-34.0) 01/05/18 04:25 MCHC 35.8 g/dL (33.0-35.0) H 01/05/18 04:25 RDW 19.3 % (11.6-16.5) H 01/05/18 04:25 Plt Count 259 X10^3/uL (150.0-450.0) 01/05/18 04:25 Plt Count Comment Adequate (ADEQUATE) 01/05/18 04:25 MPV 7.3 fL (7.4-11.0) L 01/05/18 04:25 Neut % (Auto) 69.0 % (42.0-75.0) 01/05/18 04:25 Lymph % (Auto) 22.5 % (21.0-51.0) 01/05/18 04:25 [place] % (Auto) 7.3 % (0.0-13.0) 01/05/18 04:25 Eos % (Auto) 0.4 % (0.9-2.9) L 01/05/18 04:25 Baso % (Auto) 0.8 % (0.2-1.0) 01/05/18 04:25 Neut # (Auto) 3.8 x10^3/uL (2.2-4.8) 01/05/18 04:25 Lymph # (Auto) 1.2 X10^3/uL (1.3-2.9) L 01/05/18 04:25 [place] # (Auto) 0.4 x10^3/uL (0.3-0.8) 01/05/18 04:25 Eos # (Auto) 0.0 x10^3/uL (0.0-0.2) 01/05/18 04:25 Baso # (Auto) 0.0 X10^3/uL (0.0-0.1) 01/05/18 04:25 Absolute Nucleated RBC 0.1 /100WBC 01/05/18 04:25 Total Counted 100 01/05/18 04:25 Neutrophils % (Manual) 66 % (39-76) 01/05/18 04:25 Band Neutrophils % 6 % (0-10) 01/05/18 04:25 Lymphocytes % (Manual) 22 % (13-43) 01/05/18 04:25 Monocytes % (Manual) 6 % (4-9) 01/05/18 04:25 Eosinophils % (Manual) 1 % (0-6) 01/03/18 05:44 Plt Morphology Comment Normal (NORMAL) 01/05/18 04:25 RBC Morphology Abnormal (NORMAL) A 01/05/18 04:25 Dimorphic RBCs Noted 01/01/18 08:48 Hypochromasia 1+ A 01/05/18 04:25 Anisocytosis Slight A 01/05/18 04:25 Macrocytosis 1+ A 12/31/17 18:05 Sodium 138 mmol/L (136-145) 01/05/18 04:25 Corrected Sodium 138 mmol/L (136-145) 01/05/18 04:25 Potassium 3.1 mmol/L (3.5-5.1) L 01/05/18 04:25 Chloride 107 mmol/L (98-107) 01/05/18 04:25 Carbon Dioxide 19.8 mmol/L (21-32) L 01/05/18 04:25 BUN 13 mg/dL (7-18) 01/05/18 04:25 Creatinine 0.85 mg/dL (0.55-1.02) 01/05/18 04:25 Est GFR (MDRD) Af Amer > 60 (>60) 01/05/18 04:25 Est GFR (MDRD) Non-Af > 60 (>60) 01/05/18 04:25 Glucose 111 mg/dL (65-99) H 01/05/18 04:25 Lactic Acid 0.3 mmol/L (0.4-2.0) L 01/03/18 05:44 Calcium 7.8 mg/dL (8.5-10.1) L 01/05/18 04:25 Corrected Calcium 9.2 mg/dL (8.5-10.1) 01/05/18 04:25 Magnesium 2.0 mg/dL (1.7-2.9) 01/03/18 05:44 Iron 36 ug/dL (50-175) L 01/01/18 08:08 Total Bilirubin 0.30 mg/dL (0.2-1.0) 01/05/18 04:25 AST 10 Units/L (15-37) L 01/05/18 04:25 ALT 11 Units/L (12-78) L 01/05/18 04:25 Alkaline Phosphatase 70 Units/L (46-116) 01/05/18 04:25 Total Protein 5.1 g/dL (6.4-8.2) L 01/05/18 04:25 Albumin 2.2 g/dL (3.4-5.0) L 01/05/18 04:25 Globulin 2.9 g/dL (2.5-4.5) 01/05/18 04:25 Albumin/Globulin Ratio 0.8 Ratio (1.1-2.1) L 01/05/18 04:25 Vitamin B12 > 2000 pg/mL (193-986) H 01/01/18 08:08 Folate 4.1 ng/mL (>8.6) L 01/01/18 08:08 Specimen Type Catherized urine 12/31/17 20:40 Urine Color Yellow (YELLOW) 12/31/17 20:40 Urine Appearance Clear (CLEAR) 12/31/17 20:40 Urine pH 5.0 (5.0 - 8.0) 12/31/17 20:40 Ur Specific [place] 1.020 (1.000-1.030) 12/31/17 20:40 Urine Protein 2+ (NEGATIVE) 12/31/17 20:40 Urine Glucose (UA) Negative (NEGATIVE) 12/31/17 20:40 Urine Ketones Negative (NEGATIVE) 12/31/17 20:40 Urine Occult Blood 2+ (NEGATIVE) 12/31/17 20:40 Urine Nitrite Negative (NEGATIVE) 12/31/17 20:40 Urine Bilirubin Negative (NEGATIVE) 12/31/17 20:40 Urine Urobilinogen Normal (NORMAL) 12/31/17 20:40 Ur Leukocyte Esterase Negative (NEGATIVE) 12/31/17 20:40 Urine RBC 0-2 /HPF (NONE SEEN) 12/31/17 20:40 Urine WBC None seen /HPF (NONE SEEN) 12/31/17 20:40 Ur Squamous Epith Cells Rare /HPF (NEGATIVE) 12/31/17 20:40 Amorphous Sediment Trace /HPF (NEGATIVE) 12/31/17 20:40 Urine Bacteria Negative /HPF (NEGATIVE) 12/31/17 20:40 Ur Culture Indicated? No/not indicated 12/31/17 20:40 Stool Description Fob tube 01/01/18 16:57 Stl Occult Blood (IFOB) Positive (NEGATIVE) A 01/01/18 16:57 Stl C. diff Tox B Gene Negative (NEGATIVE) 01/02/18 13:12 Stl C. diff [id number] Negative (NEGATIVE) 01/02/18 13:12 Tissue Pathology To follow 01/02/18 13:12 Blood Type A POSITIVE 12/31/17 18:05 Antibody Screen Negative 12/31/17 18:05 Crossmatch See Detail 12/31/17 18:05 - Plan (1) Anemia Status: Acute Qualifiers: Anemia type: iron deficiency Iron deficiency anemia type: chronic blood loss Qualified Code(s): D50.0 - Iron deficiency anemia secondary to blood loss (chronic) Plan: TRANSFUSE TWO UNITS PRBC, MONITOR H&H, CONTINUE PEPCID, PROTONIX (2) Generalized weakness Status: Acute (3) Dehydration Status: Acute Plan: NORMAL SALINE AT 50ML/HR, CONTINUE TO MONITOR (4) Hypoalbuminemia Status: Acute Plan: ALBUMIN 25% IV DAILY, CONTINUE TO MONITOR
[2018-01-05] MEDS: SYNTHROID 25 mcg TAB PO SCH (16:17)
[2018-01-05] MEDS ORDERED: CATAPRES TAB 0.1 MG PO PRN (19:38)
[2018-01-05] MEDS: DESYREL PO SCH (20:42)
[2018-01-05] MEDS: REQUIP PO SCH (20:42)
[2018-01-05] MEDS: SINGULAIR TAB 10 MG PO SCH (20:42)
[2018-01-06] MEDS: ULTRAM PO PRN (02:43)
[2018-01-06] MEDS: NS + KCL 40 MEQ/L 1,000 ML IV SCH (04:36)
[2018-01-06 05:46] LABS: ALANINE AMINOTRANSFERASE 9 Units/L (12-78); ALBUMIN 2.3 g/dL (3.4-5.0); ALKALINE PHOSPHATASE 69 Units/L (46-116); ASPARTATE AMINO TRANSFERASE 13 Units/L (15-37); BLOOD UREA NITROGEN 9 mg/dL (7-18); CALCIUM 8.1 mg/dL (8.5-10.1); CARBON DIOXIDE 21.3 mmol/L (21-32); CHLORIDE 106 mmol/L (98-107); COR CA(FOR HYPOALB) 9.5 mg/dL (8.5-10.1); CREATININE 0.92 mg/dL (0.55-1.02); SODIUM 136 mmol/L (136-145); TOTAL PROTEIN 5.2 g/dL (6.4-8.2); eGFR NON BLACK RACES > 60 (>60)
[2018-01-06 06:13] LABS: BASOPHILS # (AUTO) 0.1 X10^3/uL (0.0-0.1); BASOPHILS % (AUTO) 2.6 % (0.2-1.0); EOSINOPHILS % (AUTO) 0.8 % (0.9-2.9); HEMATOCRIT 25.6 % (36.0-47.0); HEMOGLOBIN 8.9 g/dL (12.0-16.0); LYMPHOCYTES # (AUTO) 1.6 X10^3/uL (1.3-2.9); LYMPHOCYTES % (AUTO) 35.7 % (21.0-51.0); MEAN CORPUSCULAR HEMOGLOBIN 33.2 pg (27.0-34.0); MEAN CORPUSCULAR VOLUME 94.9 fL (80.0-100.0); MEAN PLATELET VOLUME 7.2 fL (7.4-11.0); MONOCYTES # (AUTO) 0.4 x10^3/uL (0.3-0.8); MONOCYTES % (AUTO) 8.8 % (0.0-13.0); NEUTROPHILS # (AUTO) 2.3 x10^3/uL (2.2-4.8); NEUTROPHILS % (AUTO) 52.1 % (42.0-75.0); PLATELET COUNT 280 X10^3/uL (150.0-450.0); RED BLOOD COUNT 2.69 X10^6/uL (3.5-5.4); RED CELL DISTRIBUTION WIDTH 19.1 % (11.6-16.5); WHITE BLOOD COUNT 4.4 X10^3/uL (3.6-10.0)
[2018-01-06] MEDS: ALBUMIN HUMAN 25%- 100 ML 100 ML IV SCH (08:15)
[2018-01-06] MEDS: PROTONIX INJ 40 MG VIAL IVP SCH (08:15)
[2018-01-06] MEDS: EFFEXOR XR 37.5 MG CAP PO SCH (08:16)
[2018-01-06] MEDS: CARDIZEM TAB 30 MG PLAIN PO SCH (08:16)
[2018-01-06] MEDS: TobraDEX OPHTH SUSP EACHEYE SCH (08:18)
[2018-01-06] MEDS: VITAMIN D3 PO SCH (08:21)
[2018-01-06] MEDS: TAMBOCOR PO SCH (08:21)
[2018-01-06] MEDS: HYDREA PO SCH ×2 (08:23→09:42)
--- NOTE | 2018-01-06 08:33 | PCM.PROG ---
Progress Note - Progress Note for Day of Date of Exam: 01/05/18 - Subjective Subjective: WAS ADMITTED FOR ANEMIA. SHE RECEIVED TWO UNITS OF PACKED RED BLOOD CELLS ON ADMISSION. TODAY, SHE IS ALERT AND ORIENTED, LYING IN BED ON MORNING ROUNDS. SHE CONTINUES WITH COMPLAINTS OF GENERALIZED WEAKNESS. WE WILL CONTINUE PEPCID, PROTONIX, AND IV FLUIDS. WE WILL MONITOR H& H. OTHERWISE, WE WILL FOLLOW UP WITH AM LABS AND CONTINUE TO MONITOR PATIENT. - Past Medical Family Social History Past Med/Fam/Surg Hx: No changes since H&P Allergies: Allergies ciprofloxacin Allergy (Verified 02/19/17 19:46) metronidazole Allergy (Verified 02/19/17 19:46) - Review of Systems ROS: No change since H&P - Vital Signs and I&O's Vital Signs: Temperature 97.4 F Pulse Rate [Left Brachial] 83 Respiratory Rate 17 Blood Pressure [Left Arm] 158/72 Blood Pressure [Right Arm] 138/65 Blood Pressure 144/63 O2 Sat by Pulse Oximetry 96 Intake and Output: Intake & Output 01/03/18 01/04/18 01/05/18 01/06/18 11:59 11:59 11:59 11:59 Intake Total 2017 2235 / 2235 2865 / 2865 3041 / 3041 Output Total 1750 / 1750 2450 / 2450 3000 / 3000 3350 / 3350 Balance 268 / 268 -215 / -215 -135 / -135 -309 / -309 - Physical Exam Oriented: Normal Eyes: Discharge, Redness Ear: Normal Nose: Normal Throat: Normal Respiratory: Generalized, Diminished Cardiovascular: Normal : Normal Auscultation: Bowel Sounds: Normal Tenderness: LLQ Skin: Decreased Turgur Musculoskeletal: Normal Psychiatric: Normal Mood Description: Calm Affect: Normal Speech Pattern: Clear, Appropriate - Laboratory and Diagnostics Result Diagrams: 01/06/18 06:05 01/06/18 04:25 Labs: 01/01/18 08:21 Blood Blood Culture - Preliminary 01/01/18 08:08 Blood Blood Culture - Preliminary Laboratory WBC 4.4 X10^3/uL (3.6-10.0) 01/06/18 06:05 RBC 2.69 X10^6/uL (3.5-5.4) L 01/06/18 06:05 Hgb 8.9 g/dL (12.0-16.0) L 01/06/18 06:05 Hct 25.6 % (36.0-47.0) L 01/06/18 06:05 MCV 94.9 fL (80.0-100.0) 01/06/18 06:05 MCH 33.2 pg (27.0-34.0) 01/06/18 06:05 MCHC 35.0 g/dL (33.0-35.0) 01/06/18 06:05 RDW 19.1 % (11.6-16.5) H 01/06/18 06:05 Plt Count 280 X10^3/uL (150.0-450.0) 01/06/18 06:05 Plt Count Comment Adequate (ADEQUATE) 01/05/18 04:25 MPV 7.2 fL (7.4-11.0) L 01/06/18 06:05 Neut % (Auto) 52.1 % (42.0-75.0) 01/06/18 06:05 Lymph % (Auto) 35.7 % (21.0-51.0) 01/06/18 06:05 Prentiss % (Auto) 8.8 % (0.0-13.0) 01/06/18 06:05 Eos % (Auto) 0.8 % (0.9-2.9) L 01/06/18 06:05 Baso % (Auto) 2.6 % (0.2-1.0) H 01/06/18 06:05 Neut # (Auto) 2.3 x10^3/uL (2.2-4.8) 01/06/18 06:05 Lymph # (Auto) 1.6 X10^3/uL (1.3-2.9) 01/06/18 06:05 Prentiss # (Auto) 0.4 x10^3/uL (0.3-0.8) 01/06/18 06:05 Eos # (Auto) 0.0 x10^3/uL (0.0-0.2) 01/06/18 06:05 Baso # (Auto) 0.1 X10^3/uL (0.0-0.1) 01/06/18 06:05 Absolute Nucleated RBC 0.1 /100WBC 01/06/18 06:05 Total Counted 100 01/05/18 04:25 Neutrophils % (Manual) 66 % (39-76) 01/05/18 04:25 Band Neutrophils % 6 % (0-10) 01/05/18 04:25 Lymphocytes % (Manual) 22 % (13-43) 01/05/18 04:25 Monocytes % (Manual) 6 % (4-9) 01/05/18 04:25 Eosinophils % (Manual) 1 % (0-6) 01/03/18 05:44 Plt Morphology Comment Normal (NORMAL) 01/05/18 04:25 RBC Morphology Abnormal (NORMAL) A 01/05/18 04:25 Dimorphic RBCs Noted 01/01/18 08:48 Hypochromasia 1+ A 01/05/18 04:25 Anisocytosis Slight A 01/05/18 04:25 Macrocytosis 1+ A 12/31/17 18:05 Sodium 136 mmol/L (136-145) 01/06/18 04:25 Corrected Sodium TNP 01/06/18 04:25 Potassium 3.9 mmol/L (3.5-5.1) 01/06/18 04:25 Chloride 106 mmol/L (98-107) 01/06/18 04:25 Carbon Dioxide 21.3 mmol/L (21-32) 01/06/18 04:25 BUN 9 mg/dL (7-18) 01/06/18 04:25 Creatinine 0.92 mg/dL (0.55-1.02) 01/06/18 04:25 Est GFR (MDRD) Af Amer > 60 (>60) 01/06/18 04:25 Est GFR (MDRD) Non-Af > 60 (>60) 01/06/18 04:25 Glucose 107 mg/dL (65-99) H 01/06/18 04:25 Lactic Acid 0.3 mmol/L (0.4-2.0) L 01/03/18 05:44 Calcium 8.1 mg/dL (8.5-10.1) L 01/06/18 04:25 Corrected Calcium 9.5 mg/dL (8.5-10.1) 01/06/18 04:25 Magnesium 2.0 mg/dL (1.7-2.9) 01/03/18 05:44 Iron 36 ug/dL (50-175) L 01/01/18 08:08 Total Bilirubin 0.20 mg/dL (0.2-1.0) 01/06/18 04:25 AST 13 Units/L (15-37) L 01/06/18 04:25 ALT 9 Units/L (12-78) L 01/06/18 04:25 Alkaline Phosphatase 69 Units/L (46-116) 01/06/18 04:25 Total Protein 5.2 g/dL (6.4-8.2) L 01/06/18 04:25 Albumin 2.3 g/dL (3.4-5.0) L 01/06/18 04:25 Globulin 2.9 g/dL (2.5-4.5) 01/06/18 04:25 Albumin/Globulin Ratio 0.8 Ratio (1.1-2.1) L 01/06/18 04:25 Vitamin B12 > 2000 pg/mL (193-986) H 01/01/18 08:08 Folate 4.1 ng/mL (>8.6) L 01/01/18 08:08 Specimen Type Catherized urine 12/31/17 20:40 Urine Color Yellow (YELLOW) 12/31/17 20:40 Urine Appearance Clear (CLEAR) 12/31/17 20:40 Urine pH 5.0 (5.0 - 8.0) 12/31/17 20:40 Ur Specific [place] 1.020 (1.000-1.030) 12/31/17 20:40 Urine Protein 2+ (NEGATIVE) 12/31/17 20:40 Urine Glucose (UA) Negative (NEGATIVE) 12/31/17 20:40 Urine Ketones Negative (NEGATIVE) 12/31/17 20:40 Urine Occult Blood 2+ (NEGATIVE) 12/31/17 20:40 Urine Nitrite Negative (NEGATIVE) 12/31/17 20:40 Urine Bilirubin Negative (NEGATIVE) 12/31/17 20:40 Urine Urobilinogen Normal (NORMAL) 12/31/17 20:40 Ur Leukocyte Esterase Negative (NEGATIVE) 12/31/17 20:40 Urine RBC 0-2 /HPF (NONE SEEN) 12/31/17 20:40 Urine WBC None seen /HPF (NONE SEEN) 12/31/17 20:40 Ur Squamous Epith Cells Rare /HPF (NEGATIVE) 12/31/17 20:40 Amorphous Sediment Trace /HPF (NEGATIVE) 12/31/17 20:40 Urine Bacteria Negative /HPF (NEGATIVE) 12/31/17 20:40 Ur Culture Indicated? No/not indicated 12/31/17 20:40 Stool Description Fob tube 01/01/18 16:57 Stl Occult Blood (IFOB) Positive (NEGATIVE) A 01/01/18 16:57 Stl C. diff Tox B Gene Negative (NEGATIVE) 01/02/18 13:12 Stl C. 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
[2018-01-06] MEDS: PEPCID 20 MG IV PREMIX* 20 MG/50 ML BAG IV SCH (08:55)
[2018-01-06] MEDS: TYLENOL 325 MG TAB PO PRN (09:00)
[2018-01-06 11:07] VITALS: BP 167/71
--- NOTE | 2018-01-16 00:58 | DR.CARTERD ---
- Discharge Summary for: Discharge Summary for Date of:: 01/06/18 - Admission Date Date of Admission: 12/31/17 - Admission Diagnoses Admission Diagnosis: (1) Anemia (2) Generalized weakness (3) Dehydration - Discharge Date Discharge Date: 01/06/18 - Discharge Diagnoses Discharge Diagnosis: (1) Anemia (2) Generalized weakness (3) Dehydration (4) Hypoalbuminemia - Hospital Course Hospital Course: Day one, patient presented to the [facility] as a direct admit from our office with complaints of weakness. She described the weakness as constant, decreased energy, and worsening with symptoms starting 1 week ago. Labs were drawn and revealed a HGB of 6.7 and HCT of 19.6. EKG showed sinus rhythm with a heart rate of 98. Patient noted to have bloody stools. Abnormal Labs: RBC 1.84 , HGB 6.7, HCT 19.6, MCV 106.4, MCH 36.2, PLT Count 456, PLT Count Comment Increased A, MPV 6.8, Potassium 3.2, Carbon Dioxide 19.9, BUN 26, Creatinine 1.38, GFR (AA) 47, GFR (NON) 39, Glucose 215, Lactic Acid 2.5, Corrected Calcium 10.7, Total Bilirubin 0.10, Total Protein 5.4, Albumin 1.6, A/G ratio 0.4. Urinalysis: Protein 2+, Occult Blood 2+, RBC 0-2, Squamous Epith Cells Rare , Amorphous Sediment Trace. Chest Pain: No acute superimposed abnormality is seen. Patient was admitted to the hospital for further evaluation and treatment of anemia and weakness. We transfused 2 units PRBC's. Day two, we continued Pepcid, Protonix, and IV fluids. We consulted GI in reference to bloody stools. Day three, Albumin level 1.6 and Albumin 25% IV was started. Gi consulted and took patient to OR for colonoscopy. It reported: extensive ulcerations involving the descending colon area, splenic flexure and most of the transverse colon; Some ulcerations are present, scattered in the ascending with normal skip areas; Sigmoid diverticulosis with a couple of very small superficial ulcers in the sigmoid colon area; The rectum is normal; Internal hemorrhoids. We continued treatment. On day four, She was alert and oriented, lying in bed on morning rounds. She continued with complaints of generalized weakness as well as itching to both eyes. On examination, bilateral eyes were noted with redness. Abdomen was round, soft, and noted with mild LLQ tenderness to palpation. Normal bowel sounds were noted in all quadrants. Hgb 6.9. We transfused two units of packed red blood cells with Lasix 20mg IV in between units of blood. We started Tobradex eye drops twice a day to both eyes. We continued Pepcid, Protonix, and IV fluids. On day five and six, Hgb was 8.6. Patient continued with weakness. We continued to monitor. On day seven, patient reported she was feeling better. She denied bloody bowel movements. Hgb was stable at 8.9. Vital signs stable. We planned for discharge. Instructions for medications and follow up were discussed with patient and family both voiced understanding. Patient discharged home in stable condition with family. - Discharge Medications Discharge Medications: Home Medication List [id number] [Fioricet] 1 cap PO Q4H PRN #30 cap 01/06/18 [Rx] cyclosporine [Restasis MultiDose] 1 drp OPHTHALMIC (EYE) Q12H #1 ml 01/06/18 [Rx ] tobramycin-dexamethasone [TobraDex] 1 applic OPHTHALMIC (EYE) TID #1 g 01/06/18 [Rx] Prescriptions: [id number] [Fioricet] Brett Weber cyclosporine [Restasis MultiDose] Brett Weber tobramycin-dexamethasone [TobraDex] Brett Weber Home medications levothyroxine 25 mcg PO DAILY 11/23/16 flecainide 1 tab PO BID 07/23/17 hydroxyurea 1 cap PO MOTUWETHFR 07/23/17 ropinirole 1 tab PO HS 07/23/17 trazodone 1 tab PO HS 07/23/17 venlafaxine 37.5 mg PO DAILY #30 cap 07/24/17 meclizine 6.25 mg PO TID PRN #15 tab 12/07/17 acetaminophen [Tylenol Extra Strength] 1,000 mg PO Q6H PRN 12/26/17 aspirin [Ecotrin] 1 tab PO DAILY 12/26/17 cholecalciferol (vitamin D3) [Vitamin D3] 5,000 unit PO DAILY 12/26/17 diltiazem HCl 1 tab PO BID 12/26/17 levofloxacin 1 tab PO DAILY 12/26/17 loperamide 2 mg PO BID PRN 12/26/17 melatonin 1 mg PO HS PRN 12/26/17 montelukast 10 mg PO DAILY 12/26/17 ranitidine HCl 1 tab PO DAILY 12/26/17 - Discharge Disposition Discharge Disposition: Patient is to follow up in our office in one week.
--- NOTE | 2018-02-19 20:23 | DR.UPDATE ---
H&P Update History and Physical Update: WAS SEEN IN THE OFFICE TODAY. A H&P WAS COMPLETED PRIOR TO ADMISSION. PATIENT HAS BEEN SEEN AND EXAMINED WITH NO CHANGES NOTED TO H&P. Changes noted: NO Yes with the following:
== END 2018-01-06 11:55 | DRG 812 ==
LOC: ICU → OBSVTOIN 17:14
PROVIDERS: ADMIT Internal Medicine; ATTEND Internal Medicine
DX: E78.2 Mixed hyperlipidemia; I12.9 Hypertensive chronic kidney disease with stage 1 through stage 4 chronic kidney disease, or unspecified chronic kidney disease; E86.0 Dehydration; E55.9 Vitamin D deficiency, unspecified; I49.8 Other specified cardiac arrhythmias; N18.9 Chronic kidney disease, unspecified; E11.65 Type 2 diabetes mellitus with hyperglycemia; E03.8 Other specified hypothyroidism; K92.1 Melena; D50.0 Iron deficiency anemia secondary to blood loss (chronic); R53.1 Weakness; K64.8 Other hemorrhoids; R26.89 Other abnormalities of gait and mobility; F03.90 Unspecified dementia, unspecified severity, without behavioral disturbance, psychotic disturbance, mood disturbance, and anxiety; K57.30 Diverticulosis of large intestine without perforation or abscess without bleeding; K63.3 Ulcer of intestine
CPT/HCPCS: 36415; 36430; 71010; 71045; 80053; 81001; 82270; 82607; 82746; 83540; 83605; 83735; 84132; 85014; 85018; 85025; 86850; 86900; 86901; 86922; 87040; 87493; 93005; 97110; 97163; 97167; 97535; 99100; A4217; A4222; C9113; P9016; P9047; S0028; S0176; G0378; J1200; J1940; J2704; J3475; J3480; J3490; J7030; J7040; J7120; J8499